=== PATIENT | female | born 1950 | race Caucasian/White ===

== ENCOUNTER 2020-03-06 11:45 | Outpatient (CLI) | payer MEDICARE, SELFPAY ==
--- NOTE | ~2020-03-06 | XR_ITS ---
EXAMINATION: XR foot RT min 3V DATE: 03/06/2020 12:16 INDICATION: Right foot injury TECHNIQUE: Dorsoplantar, two oblique and lateral views of the right foot were obtained. COMPARISON: None. FINDINGS: Essentially nondisplaced oblique intra-articular fracture at the lateral base of the right fifth meta tarsal with up to 1.5 mm separation of the lateral fracture margin but no appreciable fracture gap or incongruity at the articular surface. No other fractures identified. Minimal osteoarthritis at the f irst metatarsophalangeal and a few interphalangeal and tarsal metatarsal joints. Small plantar calcan eal spur. IMPRESSION: 1. Nondisplaced intra-articular fracture at the base of the right fifth metatarsal. Reviewed, dictated and finalized at location B. IMPRESSION: 1. Nondisplaced intra-articular fracture at the base of the right fifth metatar michell.
== END 2020-03-06 11:46 | disposition home or self-care (01) ==
PROVIDERS: PCP Family Medicine; Visit Provider Physician Assistant
DX: S92.354A Nondisplaced fracture of fifth metatarsal bone, right foot, initial encounter for closed fracture (principal); X58.XXXA Exposure to other specified factors, initial encounter
CPT/HCPCS: 73630

== ENCOUNTER 2020-08-24 15:13 | Outpatient (CLI) | payer MEDICARE, SELFPAY ==
--- NOTE | ~2020-08-24 | DEXA_ITS ---
Bone Density Report Name: Love Santiago Age: 69 Sex: Female Ethnicity: White Date of : 1950 Indication: postmenopausal; cancer; Referring Provider: GEGE JOYCE Study: Bone densitometry was performed. Exam Date: August 24, 2020 Accession number: [id number] Bone Density: Region BMD T-score Z-score Classification AP Spine (L1-L4) 1.227 1.6 3.8 Normal Femoral Neck (Left) 0.797 -0.5 1.4 Normal Total Hip (Left) 0.988 0.4 1.9 Normal Total Hip Bilateral Avg 0.973 0.3 1.8 Normal Femoral Neck (Right) 0.860 0.1 1.9 Normal Total Hip (Right) 0.957 0.1 1.7 Normal World Health Organization criteria for BMD impression classify patients as: Normal (T-score at or above -1.0), Osteopenia (T-score between -1.0 and -2.5), or Osteoporosis (T-score at or below -2.5). 10-year Fracture Risk: FRAX not reported because: All T-scores for Spine Total, Hip Total, Femoral Neck at or above -1.0 Clinical Information Provided by Patient: Has used the following medications: Vitamin D, Calcium Has the following medical conditions: Cancer Patient maximum height was 66.5 Menopause Age: 54 Drinks caffeinated beverages Onset of menses at age 11 Number of children 0 Missed period for more than 6 months in a row Impression: The patient has normal bone mass. Discussion: BONE DENSITY IS ABOVE THE MINIMUM DESIRABLE LEVEL AT ALL SKELETAL SITES TESTED. This patient?s bone mineral density is above the minimum desirable level (T-score -1.0 or better) at all sites measured. The patient should follow a healthful lifestyle (good nutrition with adequate calcium and vitamin D, and appropriate weight-bearing exercise). Follow-Up: Consider repeating this study in 5 years or sooner if there is some new clinical indication. Reported by: JOSI on 08/24/2020 3:50:00 PM. Reviewed, dictated and finalized at location ACristian KINNEY
== END 2020-08-24 15:14 | disposition home or self-care (01) ==
LOC: ANHIMG 15:22
PROVIDERS: PCP Family Medicine; Visit Provider Family Medicine
DX: Z78.0 Asymptomatic menopausal state (principal); Z13.820 Encounter for screening for osteoporosis
CPT/HCPCS: 77080

== ENCOUNTER 2021-04-20 10:39 | Outpatient (CLI) | payer MEDICARE, SELFPAY ==
[2021-04-20 12:42] LABS: Lithium 0.9 mmol/L (0.6-1.2)
[2021-04-20 13:17] LABS: Alanine Aminotransferase 21 U/L (4-35); Albumin Level 4.4 g/dL (3.5-5.1); Alkaline Phosphatase 72 U/L (38-126); Anion Gap 6 mmol/L (8-16); Aspartate Amino Transferase 28 U/L (14-36); Bilirubin,Total 0.5 mg/dL (0.2-1.3); Blood Urea Nitrogen 15 mg/dL (7-17); Calcium 9.5 mg/dL (8.4-10.2); Carbon Dioxide 24 mmol/L (22-30); Chloride 105 mmol/L (98-107); Cholesterol 195 mg/dL (0-200); Estimated Glomerular Filt Rate > 60; Glucose 102 mg/dL (65-110); HDL Direct 50 mg/dL; Potassium 4.2 mmol/L (3.4-5.0); Sodium 135 mmol/L (137-145); Triglycerides 144 mg/dL (<150)
[2021-04-20 13:28] LABS: LDL Cholesterol Direct 114 mg/dL
== END 2021-04-20 10:40 | disposition home or self-care (01) ==
PROVIDERS: PCP Family Medicine; Visit Provider Physician Assistant
DX: R53.83 Other fatigue (principal); Z79.899 Other long term (current) drug therapy; E03.9 Hypothyroidism, unspecified; E78.5 Hyperlipidemia, unspecified
CPT/HCPCS: 36415; 80053; 80061; 80178; 84439; 84443

== ENCOUNTER 2021-11-16 15:11 | Outpatient (CLI) | payer MEDICARE, SELFPAY ==
[2021-11-16 17:50] LABS: Free T4 Free Thyroxine 1.09 ng/mL (0.78-2.19)
== END 2021-11-16 15:12 | disposition home or self-care (01) ==
PROVIDERS: PCP Family Medicine; Visit Provider Physician Assistant
DX: E03.9 Hypothyroidism, unspecified (principal)
CPT/HCPCS: 36415; 84439; 84443

== ENCOUNTER 2022-03-21 22:50 | Emergency (ER) | payer MEDICARE, SELFPAY ==
--- NOTE | ~2022-03-21 | XR_ITS ---
EXAMINATION: XR chest 2V DATE: 03/22/2022 04:22 INDICATION: Cough TECHNIQUE: AP and lateral views of the chest are obtained. COMPARISON: 06/14/2004 FINDINGS: The lungs are free of acute opacities. No pleural effusion or pneumothorax. The cardiomedia stinal silhouette is normal. There is moderate thoracic spondylosis. There is a new left breast impla nt, possibly related to mastectomy with implant reconstruction. IMPRESSION: 1. No acute cardiopulmonary abnormality. Reviewed, dictated and finalized at location B. DRIVER SUPERVISOR
[2022-03-22 00:11] VITALS: BP 146/84; PULSE 85; RESP 18; TEMP 36.8; O2SAT 95
[2022-03-22 02:07] LABS: Appearance Urine Clear (Clear); Bilirubin Urine Negative (Negative); Blood Urine Negative (Negative); Color Urine Amber (Yellow); Glucose Urine UA Negative (Negative); Ketones Urine Negative (Negative); Leukocyte Esterase Ur Negative LEU/UL (Negative); Nitrate Urine Positive (Negative); Protein Urine Negative (Negative); Specific Grav Ur <= 1.005 (1.001-1.035); Urobilinogen Urine 0.2 mg/dL (<2.0)
[2022-03-22 02:15] LABS: Mucus Urine Rare /lpf; RBC Urine 0-2 /hpf (0-2); WBC Urine 0-3 /hpf
[2022-03-22 02:18] LABS: Add Urine Microscopic? YES
[2022-03-22 03:11] VITALS: BP 160/90; PULSE 83; RESP 18; O2SAT 98
[2022-03-22 03:32] LABS: Basophils Percent Auto 0.5 % (0.2-1.2); Eosinophils Absolute Auto 0.1 K/mm3 (0-0.3); Eosinophils Percent Auto 1.1 % (0-4.4); Hematocrit 39.2 % (37.0-47.0); Hemoglobin 12.7 g/dL (12.0-15.0); Immature Granulocyte Absolute 0.02 K/mm3 (0.00-0.031); Immature Granulocyte Percent A 0.3 % (0-0.5); Lymphocytes Absolute Auto 0.66 K/mm3 (0.9-3.2); Lymphocytes Percent Auto 8.7 % (18.3-44.2); Mean Corpuscular HGB Conc 32.4 g/dl (32-36); Mean Corpuscular Hemoglobin 31.8 pg (26-34); Mean Corpuscular Volume 98.2 fl (80-100); Mean Platelet Volume 9.6 fl (7.4-10.4); Monocytes Absolute Auto 0.8 K/mm3 (0.1-0.6); Monocytes Percent Auto 10.9 % (2.6-8.5); Neutrophils Percent Auto 78.5 % (45.5-73.1); Platelet Count Result 245 k/mm3 (150-375); Red Blood Count 3.99 M/mm3 (4.2-5.4); Red Cell Distribution Width 12.6 % (11.5-14.5); White Blood Count 7.6 K/mm3 (4.5-10.0)
[2022-03-22 03:41] LABS: Alanine Aminotransferase 51 U/L (6-35); Albumin Level 4.3 g/dL (3.5-5.1); Alkaline Phosphatase 74 U/L (38-126); Anion Gap 10 mmol/L (8-16); Aspartate Amino Transferase 55 U/L (14-36); Bilirubin,Total 0.4 mg/dL (0.2-1.3); Blood Urea Nitrogen 15 mg/dL (7-17); Calcium 9.1 mg/dL (8.4-10.2); Carbon Dioxide 25 mmol/L (22-30); Chloride 103 mmol/L (98-107); Estimated CRCL calculation 46 ml/min; Estimated Glomerular Filt Rate > 60; Glucose 110 mg/dL (65-110); Potassium 3.9 mmol/L (3.4-5.0); Sodium 138 mmol/L (137-145)
--- NOTE | 2022-03-22 04:05 | ED.FEMALEGU ---
HPI - Female Genitourinary General Chief complaint: Urogenital-Female Stated complaint: BLADDER INFECTION Time Seen by Provider: 03/22/22 03:10 History of Present Illness HPI Narrative: 71-year-old female presenting to the emergency department for evaluation of persistent urinary pain, back pain and cough. Patient had a recent hospitalization in [place] and was diagnosed with diabetes insipidus and a urinary tract infection. Patient did complete her antibiotics and has been continuing to take Pyridium but states she is still having some abdominal pain. Patient has also had a cough for approximately the last 5 days and states it is worsened over the last 3 days. Related Data Home Medications Medication Instructions Recorded Confirmed anastrozole 1 mg tablet 1 mg PO DAILY 03/18/19 12/24/21 valbenazine 40 mg capsule 40 mg PO DAILY 12/24/21 12/24/21 (Ingrezza) Allergies Allergy/AdvReac Type Severity Reaction Status Date / Time ampicillin Allergy Unknown unknown Verified 12/24/21 10:26 levofloxacin Allergy Unknown unknown Verified 12/24/21 10:26 Review of Systems Review of Systems: CONSTITUTIONAL: Generalized weakness EYES: Denies visual changes, redness, or discharge. ENT: Denies rhinorrhea, congestion, sore throat, or otalgia. CARDIOVASCULAR: Denies chest pain, palpitations, or edema. RESPIRATORY: See HPI GASTROINTESTINAL: Denies abdominal pain, nausea, vomiting, or diarrhea. GENITOURINARY: See HPI SKIN: Denies rash or itching. MUSCULOSKELETAL: Denies back pain, joint pain, or myalgia. NEUROLOGIC: Denies headache, numbness, or weakness. [facility] Past Medical History Medical History Anxiety Arthritis Bipolar 1 disorder Breast cancer Constipation Hoarseness Hyperlipemia Lichen sclerosus of female genitalia Normal colonoscopy (~01/2012) Post-menopausal Tardive dyskinesia Thyroid disease Surgical History Surgical History History of mastectomy Family History Family History Other Acute myocardial infarction Carcinoma of colon Family history of coronary artery disease Family history of malignant neoplasm of breast in first degree relative Heart disease Hypertension Social History Social History (Updated 12/24/21 @ 10:25 by Brittany Warren [facility]) Smoking status: Never smoker Second hand tobacco smoke exposure: No Alcohol intake: never Alcohol use details: 1/2 or less per week Substance use: never Substance use type: does not use Gender identity (if verbalized by the patient): Female Spiritual care concerns: No Agree to blood products: Yes Exam Narrative: APPEARANCE: Well appearing, no pain, no distress, well-nourished. HEAD: normocephalic, atraumatic. EYES: PERRLA/EOMI, conjunctivae clear. NOSE: Normal no drainage NECK: Supple. No adenopathy, no masses. RESPIRATORY: Airway patent, respirations nonlabored. Clear to auscultation bilaterally, no rales, rhonchi, wheezing. CARDIOVASCULAR: Regular rate and rhythm without murmurs rubs or gallops. ABDOMINAL: Soft, nontender, nondistended, normal bowel sounds MUSCULOSKELETAL: Moves all extremities. Strength/ROM intact, No edema, No calf tenderness. NEURO: Alert. Cranial nerves II through XII intact. Grossly intact SKIN: Warm, dry. Normal Color Course Course Emergency Course: Chest x-ray showed no focal pneumonia. Patient was negative for COVID and flu. Labs are within normal limits. Patient's UA did have some nitrates. Because patient is still having some symptoms of urinary tract infection she was started on Macrobid. Patient and family were updated on the results of the work-up and on the importance of close follow-up. Vital Signs Vital signs: Vital Signs Temperature 98.3 F 03/22/22 00:11 Pulse Rate 85 03/22/22 00:11 Respiratory Rate 18 03/22
[2022-03-22 04:07] LABS: Influenza A QL RT-PCR Negative (Negative); Influenza B QL RT-PCR Negative (Negative); SARS-CoV-2 RNA PCR Negative
[2022-03-22 04:15] VITALS: PULSE 69; RESP 18
[2022-03-22] MEDS: ALBUTEROL SULFATE NEB 2.5 MG/3 ML INH 5 MG INHALATION (04:15)
[2022-03-22] MEDS: HYDROcodone/acetaminophen (*CRX) 5-325 MG TABLET 2 TAB PO (04:29)
[2022-03-22 04:30] VITALS: PULSE 67; RESP 18
[2022-03-22 04:33] VITALS: BP 180/95; PULSE 71; RESP 15; O2SAT 98
== END 2022-03-22 05:24 | disposition home or self-care (01) ==
PROVIDERS: Nurse Practitioner Family; Emergency Provider Emergency Medicine; PCP Family Medicine
DX: R05.9 Cough, unspecified (principal); N23 Unspecified renal colic; Z20.822 Contact with and (suspected) exposure to COVID-19; E78.5 Hyperlipidemia, unspecified; G24.01 Drug induced subacute dyskinesia; E07.9 Disorder of thyroid, unspecified; F41.9 Anxiety disorder, unspecified; F31.9 Bipolar disorder, unspecified; Z85.3 Personal history of malignant neoplasm of breast; Z90.10 Acquired absence of unspecified breast and nipple
CPT/HCPCS: 36415; 71046; 80053; 81001; 85025; 87086; 87636; 94640; 99283; A9270

== ENCOUNTER 2022-03-26 18:08 | Outpatient (CLI) | payer MEDICARE, SELFPAY ==
--- NOTE | ~2022-03-26 | XR_ITS ---
EXAMINATION: XR abdomen obstructive series DATE: 03/26/2022 19:05 INDICATION: Unspecified abdominal pain. TECHNIQUE: Upright and supine views of the abdomen on 4 radiographs were obtained. COMPARISON: None. FINDINGS: There are no dilated loops of bowel. There is a large volume of stool in the colon. No free intraperitoneal gas. IMPRESSION: 1. Nonobstructive bowel gas pattern. 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
[2022-03-26 18:34] LABS: Hematocrit 38.7 % (37.0-47.0); Hemoglobin 12.5 g/dL (12.0-15.0); Mean Corpuscular HGB Conc 32.3 g/dl (32-36); Mean Corpuscular Hemoglobin 31.3 pg (26-34); Platelet Count Result 277 k/mm3 (150-375); Red Blood Count 3.99 M/mm3 (4.2-5.4); Red Cell Distribution Width 12.8 % (11.5-14.5); White Blood Count 14.3 K/mm3 (4.5-10.0)
[2022-03-26 19:00] LABS: Sodium Urine Random 16 meq/L
[2022-03-26 22:03] LABS: Alanine Aminotransferase 31 U/L (6-35); Albumin Level 4.5 g/dL (3.5-5.1); Alkaline Phosphatase 85 U/L (38-126); Anion Gap 9 mmol/L (8-16); Aspartate Amino Transferase 34 U/L (14-36); Bilirubin,Total 0.4 mg/dL (0.2-1.3); Blood Urea Nitrogen 15 mg/dL (7-17); Calcium 9.6 mg/dL (8.4-10.2); Carbon Dioxide 26 mmol/L (22-30); Chloride 99 mmol/L (98-107); Estimated Glomerular Filt Rate > 60; Glucose 115 mg/dL (65-110); Potassium 3.8 mmol/L (3.4-5.0); Sodium 134 mmol/L (137-145)
[2022-03-30 12:55] LABS: Osmolality, Urine 109 mOsm/kg (50-1200)
== END 2022-03-26 18:09 | disposition home or self-care (01) ==
PROVIDERS: PCP Family Medicine; Visit Provider Family Medicine
DX: R10.9 Unspecified abdominal pain (principal); R30.0 Dysuria; E87.1 Hypo-osmolality and hyponatremia; R53.83 Other fatigue; R05.9 Cough, unspecified; R50.9 Fever, unspecified
CPT/HCPCS: 36415; 74019; 80053; 83930; 83935; 84300; 85027; 87040; 87086

== ENCOUNTER 2022-04-02 13:47 | Outpatient (CLI) | payer MEDICARE, SELFPAY ==
--- NOTE | ~2022-04-02 | CT_ITS ---
EXAMINATION: CT diagnostic chest w con DATE: 04/02/2022 14:32 INDICATION: Cough TECHNIQUE: Computed tomography (CT) of the chest was performed without intravenous contrast. The dose -length product was 136.63 mGy-cm. COMPARISON: 2 view chest dated 03/22/2022 FINDINGS: There is a left breast implant. Heart size is normal. No significant pleural or pericardial effusion. No thoracic lymphadenopathy. The upper abdomen is unremarkable. No endobronchial lesions. No focal airspace consolidation. No pneumothorax. There are a few small calcified granulomas in the l ramonita parenchyma. There is a 3 mm nodule at the right lung apex. Mild thoracic spondylosis. IMPRESSION: 1. Lung-RADS category 2: Benign appearance or behavior. Continue annual screening with noncontrast lo w-dose chest CT in 12 months. Reviewed, dictated and finalized at location B. [employer] H[employer] SQUAD IMPRESSION: 1. Lung-RADS category 2: Benign appearance or behavior. Continue annual screeni ng with noncontrast low-dose chest CT in 12 months.
[2022-04-02 14:29] LABS: Anion Gap 6 mmol/L (8-16); Blood Urea Nitrogen 15 mg/dL (7-17); Carbon Dioxide 24 mmol/L (22-30); Chloride 102 mmol/L (98-107); Estimated Glomerular Filt Rate > 60; Glucose 140 mg/dL (65-110); Sodium 132 mmol/L (137-145)
[2022-04-02 14:53] LABS: Lithium 0.8 mmol/L (0.6-1.2)
== END 2022-04-02 13:48 | disposition home or self-care (01) ==
PROVIDERS: PCP Family Medicine; Visit Provider Family Medicine
DX: F31.70 Bipolar disorder, currently in remission, most recent episode unspecified (principal); E23.2 Diabetes insipidus; R05.3 Chronic cough
CPT/HCPCS: 36415; 71260; 80048; 80178; Q9967

== ENCOUNTER 2022-05-30 16:23 | Outpatient (CLI) | payer MEDICARE, SELFPAY ==
[2022-05-30 17:18] LABS: Basophils Absolute Auto 0.1 K/mm3 (0.0-0.1); Basophils Percent Auto 0.5 % (0.2-1.2); Eosinophils Absolute Auto 0.2 K/mm3 (0-0.3); Eosinophils Percent Auto 2.5 % (0-4.4); Hematocrit 38.6 % (37.0-47.0); Hemoglobin 12.7 g/dL (12.0-15.0); Immature Granulocyte Absolute 0.03 K/mm3 (0.00-0.031); Immature Granulocyte Percent A 0.3 % (0-0.5); Lymphocytes Absolute Auto 1.35 K/mm3 (0.9-3.2); Lymphocytes Percent Auto 14.3 % (18.3-44.2); Mean Corpuscular HGB Conc 32.9 g/dl (32-36); Mean Corpuscular Volume 97.2 fl (80-100); Mean Platelet Volume 9.9 fl (7.4-10.4); Monocytes Percent Auto 10.8 % (2.6-8.5); Neutrophils Absolute Auto 6.8 K/mm3 (1.3-6.7); Neutrophils Percent Auto 71.6 % (45.5-73.1); Platelet Count Result 272 k/mm3 (150-375); Red Blood Count 3.97 M/mm3 (4.2-5.4); Red Cell Distribution Width 12.8 % (11.5-14.5); White Blood Count 9.5 K/mm3 (4.5-10.0)
[2022-05-30 17:29] LABS: Alanine Aminotransferase 27 U/L (6-35); Alkaline Phosphatase 101 U/L (38-126); Anion Gap 7 mmol/L (8-16); Aspartate Amino Transferase 28 U/L (14-36); Bilirubin,Total 0.3 mg/dL (0.2-1.3); Blood Urea Nitrogen 14 mg/dL (7-17); Carbon Dioxide 25 mmol/L (22-30); Chloride 104 mmol/L (98-107); Estimated Glomerular Filt Rate > 60; Glucose 87 mg/dL (65-110); Potassium 4.4 mmol/L (3.4-5.0); Sodium 136 mmol/L (137-145)
[2022-05-30 19:58] LABS: Lithium 1.3 mmol/L (0.6-1.2)
== END 2022-05-30 16:24 | disposition home or self-care (01) ==
LOC: ANHLAB 16:27
PROVIDERS: PCP Physician Assistant Medical; Referring Provider Internal Medicine Nephrology; Visit Provider Physician Assistant
DX: R53.83 Other fatigue (principal); E78.2 Mixed hyperlipidemia; Z79.899 Other long term (current) drug therapy; E23.2 Diabetes insipidus; I10 Essential (primary) hypertension
CPT/HCPCS: 36415; 80053; 80069; 80178; 85025

== ENCOUNTER 2022-06-18 16:46 | Outpatient (CLI) | payer MEDICARE, SELFPAY ==
[2022-06-18 17:17] LABS: Anion Gap 3 mmol/L (8-16); Blood Urea Nitrogen 20 mg/dL (7-17); Calcium 8.6 mg/dL (8.4-10.2); Carbon Dioxide 26 mmol/L (22-30); Chloride 104 mmol/L (98-107); Estimated Glomerular Filt Rate > 60; Glucose 104 mg/dL (65-110); Potassium 4.6 mmol/L (3.4-5.0); Sodium 133 mmol/L (137-145)
[2022-06-18 18:24] LABS: Lithium 0.8 mmol/L (0.6-1.2)
[2022-06-19 17:10] LABS: Cholesterol 219 mg/dL (0-200); HDL Direct 39 mg/dL; Triglycerides 338 mg/dL (<150)
[2022-06-19 17:21] LABS: LDL Cholesterol Direct 116 mg/dL
[2022-06-19 17:41] LABS: Thyroid Stimulating Hormone Reflex 0.315 uIU/mL (0.465-4.68)
[2022-06-20 02:58] LABS: Free T4 Free Thyroxine Reflex 1.02 ng/dL (0.78-2.19)
[2022-06-20 11:57] LABS: Total Triiodothyronine (T3) 1.27 NG/ML (0.97-1.69)
== END 2022-06-18 16:47 | disposition home or self-care (01) ==
PROVIDERS: PCP Physician Assistant Medical; Visit Provider Family Medicine
DX: E23.2 Diabetes insipidus (principal); Z79.899 Other long term (current) drug therapy; E78.2 Mixed hyperlipidemia; E03.9 Hypothyroidism, unspecified
CPT/HCPCS: 36415; 80048; 80061; 80178; 84439; 84443; 84480

== ENCOUNTER 2022-10-01 11:32 | Outpatient (CLI) | payer MEDICARE, SELFPAY ==
[2022-10-01 12:11] LABS: Alanine Aminotransferase 25 U/L (6-35); Albumin Level 4.3 g/dL (3.5-5.1); Alkaline Phosphatase 78 U/L (38-126); Anion Gap 6 mmol/L (8-16); Aspartate Amino Transferase 28 U/L (14-36); Bilirubin,Total 0.3 mg/dL (0.2-1.3); Blood Urea Nitrogen 22 mg/dL (7-17); Calcium 9.1 mg/dL (8.4-10.2); Carbon Dioxide 27 mmol/L (22-30); Chloride 109 mmol/L (98-107); Cholesterol 201 mg/dL (0-200); Estimated Glomerular Filt Rate > 60; Glucose 93 mg/dL (65-110); HDL Direct 75 mg/dL; Potassium 4.5 mmol/L (3.4-5.0); Sodium 142 mmol/L (137-145); Triglycerides 121 mg/dL (<150)
[2022-10-01 12:12] LABS: Albumin Level 4.3 g/dL (3.5-5.1); Anion Gap 5 mmol/L (8-16); Blood Urea Nitrogen 22 mg/dL (7-17); Carbon Dioxide 27 mmol/L (22-30); Chloride 109 mmol/L (98-107); Estimated Glomerular Filt Rate > 60; Glucose 92 mg/dL (65-110); Phosphorus 4.6 mg/dL (2.5-4.5); Potassium 4.4 mmol/L (3.4-5.0); Sodium 141 mmol/L (137-145)
[2022-10-01 12:22] LABS: LDL Cholesterol Direct 94 mg/dL
[2022-10-01 12:32] LABS: Lithium 0.5 mmol/L (0.6-1.2)
[2022-10-01 12:52] LABS: Free T4 Free Thyroxine 0.64 ng/mL (0.78-2.19)
== END 2022-10-01 11:33 | disposition home or self-care (01) ==
PROVIDERS: PCP Family Medicine; Referring Provider Physician Assistant; Visit Provider Internal Medicine Nephrology
DX: Z13.1 Encounter for screening for diabetes mellitus (principal); R53.83 Other fatigue; Z13.220 Encounter for screening for lipoid disorders; Z79.899 Other long term (current) drug therapy; E23.2 Diabetes insipidus
CPT/HCPCS: 36415; 80053; 80061; 80069; 80178; 84439; 84443

== ENCOUNTER 2023-01-14 15:46 | Outpatient (CLI) | payer MEDICARE, SELFPAY ==
[2023-01-14 17:22] LABS: Basophils Percent Auto 0.7 % (0.2-1.2); Eosinophils Absolute Auto 0.1 K/mm3 (0-0.3); Hemoglobin 12.9 g/dL (12.0-15.0); Immature Granulocyte Absolute 0.01 K/mm3 (0.00-0.031); Immature Granulocyte Percent A 0.2 % (0-0.5); Lymphocytes Absolute Auto 1.52 K/mm3 (0.9-3.2); Mean Corpuscular HGB Conc 32.3 g/dl (32-36); Mean Corpuscular Volume 96.2 fl (80-100); Mean Platelet Volume 10.3 fl (7.4-10.4); Monocytes Absolute Auto 0.6 K/mm3 (0.1-0.6); Monocytes Percent Auto 9.5 % (2.6-8.5); Neutrophils Absolute Auto 3.8 K/mm3 (1.3-6.7); Neutrophils Percent Auto 62.6 % (45.5-73.1); Platelet Count Result 248 k/mm3 (150-375); Red Blood Count 4.16 M/mm3 (4.2-5.4); Red Cell Distribution Width 12.8 % (11.5-14.5); White Blood Count 6.1 K/mm3 (4.5-10.0)
[2023-01-14 17:33] LABS: Albumin Level 4.6 g/dL (3.5-5.1); Anion Gap 8 mmol/L (8-16); Blood Urea Nitrogen 27 mg/dL (7-17); Calcium 9.1 mg/dL (8.4-10.2); Carbon Dioxide 24 mmol/L (22-30); Chloride 106 mmol/L (98-107); Estimated Glomerular Filt Rate > 60; Glucose 89 mg/dL (65-110); Phosphorus 3.8 mg/dL (2.5-4.5); Potassium 4.5 mmol/L (3.4-5.0); Sodium 138 mmol/L (137-145)
[2023-01-14 17:36] LABS: Alanine Aminotransferase 20 U/L (6-35); Albumin Level 4.6 g/dL (3.5-5.1); Alkaline Phosphatase 76 U/L (38-126); Anion Gap 6 mmol/L (8-16); Aspartate Amino Transferase 31 U/L (14-36); Bilirubin,Total 0.3 mg/dL (0.2-1.3); Blood Urea Nitrogen 27 mg/dL (7-17); Carbon Dioxide 26 mmol/L (22-30); Chloride 106 mmol/L (98-107); Estimated Glomerular Filt Rate > 60; Glucose 89 mg/dL (65-110); Potassium 4.5 mmol/L (3.4-5.0); Sodium 138 mmol/L (137-145)
[2023-01-14 17:49] LABS: Hemoglobin A1C 5.6 % (<5.7)
== END 2023-01-14 15:47 | disposition home or self-care (01) ==
PROVIDERS: PCP Family Medicine; Visit Provider Internal Medicine Nephrology
DX: F31.31 Bipolar disorder, current episode depressed, mild (principal); E23.2 Diabetes insipidus
CPT/HCPCS: 36415; 80053; 80069; 82306; 83036; 84443; 85025

== ENCOUNTER → 2023-01-28 12:13 | Outpatient (CLI) | payer MEDICARE, SELFPAY ==
--- NOTE | ~2023-01-28 | XR_ITS ---
Right Knee Technique: AP, lateral, and sunrise views were obtained. Clinical History: Pain Findings: No fracture or dislocation is seen. Osseous alignment is anatomic. There is minimal degener ative spurring at the patella and medial joint line. Soft tissues are unremarkable. No joint effusion is seen. Impression: Minimal degenerative spurring, as above. Reviewed, dictated and finalized at [facility]. Impression: Minimal degenerative spurring, as above.
--- NOTE | ~2023-01-28 | XR_ITS ---
AP and lateral views of the left hip Clinical history: Pain Findings: No acute fracture or dislocation is seen. Osseous alignment is anatomic. The left hip joint and left SI joint are preserved. Soft tissues are unremarkable. Impression: No significant abnormality is seen. Reviewed, dictated and finalized at [facility]. Impression: No significant abnormality is seen.
== END ==
PROVIDERS: Visit Provider Physician Assistant
DX: M25.552 Pain in left hip (principal); M25.561 Pain in right knee; M25.562 Pain in left knee
CPT/HCPCS: 73502; 73562

== ENCOUNTER 2023-03-27 08:50 | Outpatient (CLI) | payer MEDICARE, SELFPAY ==
--- NOTE | ~2023-03-27 | DEXA_ITS ---
Bone Density Report Name: SULTANA SWANSON Age: 72 Sex: Female Ethnicity: White Date of : 1950 Indication: postmenopausal; screening for osteoporosis; height loss; cancer; Referring Provider: UNKNOWN, UNKNOWN Study: Bone densitometry was performed. Exam Date: March 27, 2023 Accession number: [id number] Bone Density: Region BMD T-score Z-score Classification AP Spine(L1-L4) 1.137 0.8 3.1 Normal Femoral Neck (Left) 0.754 -0.9 1.1 Normal Total Hip (Left) 0.938 0.0 1.7 Normal Femoral Neck (Right) 0.810 -0.4 1.6 Normal Total Hip (Right) 0.938 0.0 1.6 Normal Total Hip Mean 0.938 0.0 1.7 Normal World Health Organization criteria for BMD impression classify patients as: Normal (T-score at or above -1.0), Osteopenia (T-score between -1.0 and -2.5), or Osteoporosis (T-score at or below -2.5). 10-year Fracture Risk: FRAX not reported because: All T-scores for Spine Total, Hip Total, Femoral Neck at or above -1.0 Clinical Information Provided by Patient: Has used the following medications: Vitamin D, Calcium Has the following medical conditions: Cancer Patient maximum height was 66 Menopause Age: 54 Drinks caffeinated beverages Onset of menses at age 12 Number of children 0 Impression: The patient has normal bone mass. Discussion: BONE DENSITY IS ABOVE THE MINIMUM DESIRABLE LEVEL AT ALL SKELETAL SITES TESTED. This patient?s bone mineral density is above the minimum desirable level (T-score -1.0 or better) at all sites measured. The patient should follow a healthful lifestyle (good nutrition with adequate calcium and vitamin D, and appropriate weight-bearing exercise). Follow-Up: Consider repeating this study in 5 years or sooner if there is some new clinical indication. Reported by: [facility] on 03/27/2023 9:32:00 AM. Reviewed, dictated and finalized at location ACristian KINNEY
== END 2023-03-27 08:51 | disposition home or self-care (01) ==
PROVIDERS: PCP Family Medicine
DX: Z51.81 Encounter for therapeutic drug level monitoring (principal); Z79.811 Long term (current) use of aromatase inhibitors; Z78.0 Asymptomatic menopausal state
CPT/HCPCS: 77080

== ENCOUNTER 2023-04-01 01:29 | Day surgery (SDC) | payer MEDICARE, SELFPAY ==
[2023-03-20 12:06] VITALS: BMI 24.0
--- NOTE | 2023-03-28 14:28 | SUR.PREOP ---
Patient called regarding upcoming procedure. No answer on all three phone numbers- left a message on only the home phone for arrival time and phone number to call for questions.
[2023-04-01 12:11] VITALS: BP 146/82; PULSE 98; RESP 18; TEMP 36.9; O2SAT 97
[2023-04-01] MEDS: LACTATED RINGERS 1,000 ML 150 ML IV CONT (12:20)
--- NOTE | 2023-04-01 12:44 | PM.HPGS ---
History of Present Illness History of Present Illness Consent: Risks, benefits, and alternatives have been discussed and questions answered. Patient agrees to proceed with procedure. Chief complaint: neoplasm screening Narrative: Love Santiago is a 72 year old female Presents for screening colonoscopy. Patient's current weight appetite and bowel movements are normal. Patient denies abdominal pain. She has had no bleeding. Family history noncontributory. Previous colonoscopy 2011 was unremarkable. Review of Systems Review of Systems: Review of systems noncontributory. [facility] Past Medical History Medical History (Updated 04/01/23 @ 12:45 by Romaine Hurst MD) Anxiety Arthritis Bipolar 1 disorder Breast cancer Fracture of fifth metatarsal bone of right foot Hyperlipemia Lichen sclerosus of female genitalia Normal colonoscopy (~01/2012) Post-menopausal Thyroid disease Surgical History Surgical History History of mastectomy Family History Family History Other Acute myocardial infarction Carcinoma of colon Family history of coronary artery disease Family history of malignant neoplasm of breast in first degree relative Heart disease Hypertension Social History Social History Smoking status: Never smoker Second hand tobacco smoke exposure: No Alcohol intake: never Alcohol use details: 1/2 or less per week Substance use: never Substance use type: does not use Lack of Transportation: No Lack of Food: Never True Current Housing: I Have Housing Concerned About Future Housing: No Difficulty Paying Gas/Electric Bills: No Difficulty Paying for Meds: No Currently Unemployed: No Education: Master's Degree or Higher Difficulty w/ Childcare or Family Care: No Living arrangements: alone Gender identity (if verbalized by the patient): Female Sexual Orientation (if Verbalized by the Patient): Straight or Heterosexual Spiritual care concerns: No Agree to blood products: Yes Meds Home Medications and Allergies Home Medications Medication Instructions Recorded Confirmed Type anastrozole 1 mg tablet 1 mg PO DAILY 03/18/19 03/20/23 History ascorbate calcium (vitamin C) 500 500 mg PO DAILY 07/09/22 03/20/23 History mg tablet calcium carbonate 600 mg-vitamin 3 cap PO DAILY 07/09/22 03/20/23 History D3 12.5 mcg (500 unit) capsule (Calcium 600 with Vitamin D3) cholecalciferol (vitamin D3) 25 25 mcg PO DAILY 07/09/22 03/20/23 History mcg (1,000 unit) capsule vitamin B complex 1 tablet PO DAILY 07/09/22 03/20/23 History simvastatin 20 mg tablet See Rx Instructions .Route 08/30/22 03/20/23 Rx .COMPLEX #90 tabs levothyroxine 75 mcg tablet See Rx Instructions .Route 12/07/22 03/20/23 Rx .COMPLEX #90 tabs quetiapine 100 mg tablet 100 mg PO DAILY 03/03/23 03/20/23 History amiloride 5 mg tablet 5 mg PO DAILY 03/20/23 03/20/23 History Allergies Allergy/AdvReac Type Severity Reaction Status Date / Time ampicillin Allergy Unknown unknown Verified 04/01/23 12:10 levofloxacin Allergy Unknown unknown Verified 04/01/23 12:10 Vital Signs Vital Signs - 24 hr 04/01/23 12:11 Temperature 98.4 F Pulse Rate 98 Respiratory Rate 18 Blood Pressure 146/82 H Pulse Oximetry 97 Oxygen Delivery Room Air Exam Narrative: Physical exam reveals patient to be alert. Vital signs stable. HEENT exam is unremarkable. Patient is anicteric. Lungs are clear to auscultation and percussion. Heart is without murmur or extra sounds. Abdomen bowel sounds are present soft nontender with no organomegaly. Digital external rectal exam normal. Assessment and Plan Assessment and plan (1) Encounter for screening colonoscopy: Code(s): Z12.11 - Encounter for screening for malignant ne
--- NOTE | 2023-04-01 13:01 | WPDANESEPPF ---
Anes - Initial Pre Proc Eval Procedure: Operation Date: 04/01/23 13:30 Proposed Procedures p Screening Colonoscopy - Romaine Hurst MD Date/Time: 04/01/23 13:01 Surgeon: Romaine Hurst MD Pre Op Diagnosis: neoplasm screening Patient Data Age: 72 Gender: F Height: 1.68 m Weight: 64.3 kg Last Vital Signs Temp 98.4 F 04/01/23 12:11 Pulse 98 04/01/23 12:11 Resp 18 04/01/23 12:11 BP 146/82 H 04/01/23 12:11 Pulse Ox 97 04/01/23 12:11 O2 Del Method Room Air 04/01/23 12:11 Allergies Allergy/AdvReac Type Severity Reaction Status Date / Time ampicillin Allergy Unknown unknown Verified 04/01/23 12:10 levofloxacin Allergy Unknown unknown Verified 04/01/23 12:10 Home Medications Medication Instructions Recorded Confirmed Type anastrozole 1 mg tablet 1 mg PO DAILY 03/18/19 03/20/23 History ascorbate calcium (vitamin C) 500 500 mg PO DAILY 07/09/22 03/20/23 History mg tablet calcium carbonate 600 mg-vitamin 3 cap PO DAILY 07/09/22 03/20/23 History D3 12.5 mcg (500 unit) capsule (Calcium 600 with Vitamin D3) cholecalciferol (vitamin D3) 25 25 mcg PO DAILY 07/09/22 03/20/23 History mcg (1,000 unit) capsule vitamin B complex 1 tablet PO DAILY 07/09/22 03/20/23 History simvastatin 20 mg tablet See Rx Instructions .Route 08/30/22 03/20/23 Rx .COMPLEX #90 tabs levothyroxine 75 mcg tablet See Rx Instructions .Route 12/07/22 03/20/23 Rx .COMPLEX #90 tabs quetiapine 100 mg tablet 100 mg PO DAILY 03/03/23 03/20/23 History amiloride 5 mg tablet 5 mg PO DAILY 03/20/23 03/20/23 History Patient hx anesthesia problems: none Family hx anesthesia problems: none Results Review: All pre-operative results and documents have been reviewed as part of the pre-operative evaluation. [facility] Past Medical History Medical History (Updated 04/01/23 @ 12:45 by Romaine Hurst MD) Anxiety Arthritis Bipolar 1 disorder Breast cancer Fracture of fifth metatarsal bone of right foot Hyperlipemia Lichen sclerosus of female genitalia Normal colonoscopy (~01/2012) Post-menopausal Thyroid disease Surgical History Surgical History History of mastectomy Family History Family History Other Acute myocardial infarction Carcinoma of colon Family history of coronary artery disease Family history of malignant neoplasm of breast in first degree relative Heart disease Hypertension Social History Social History Smoking status: Never smoker Second hand tobacco smoke exposure: No Alcohol intake: never Alcohol use details: 1/2 or less per week Substance use: never Substance use type: does not use Lack of Transportation: No Lack of Food: Never True Current Housing: I Have Housing Concerned About Future Housing: No Difficulty Paying Gas/Electric Bills: No Difficulty Paying for Meds: No Currently Unemployed: No Education: Master's Degree or Higher Difficulty w/ Childcare or Family Care: No Living arrangements: alone Gender identity (if verbalized by the patient): Female Sexual Orientation (if Verbalized by the Patient): Straight or Heterosexual Spiritual care concerns: No Agree to blood products: Yes Anes - Eval Final PreProcedure Day of Procedure 04/01/23 13:01 Patient weight: normal Heart: regular rate and rhythm Lungs: clear to auscultation Airway: Mallampati scale class II Neurological: alert and oriented Last oral intake: >/= 8 hours ASA classification: III Emergent: no Anesthetic plan: proceed Anesthesia type and monitoring: general GIVS and standard monitoring Results Review: All pre-operative results and documents have been reviewed as part of the pre-operative evaluation. Informed Consent: The patient's anesthetic plan and its attendant risks and benefits were
[2023-04-01 13:25] VITALS: BP 85/44; PULSE 66; RESP 23; O2SAT 95
[2023-04-01 13:35] VITALS: BP 108/58; PULSE 63; RESP 15; O2SAT 95
[2023-04-01 13:45] VITALS: BP 133/62; PULSE 73; RESP 18; O2SAT 99
== END 2023-04-01 13:53 | disposition home or self-care (01) ==
PROVIDERS: PCP Family Medicine; Visit Provider Internal Medicine Gastroenterology
PROC: 0DJD8ZZ Inspection of Lower Intestinal Tract, Via Natural or Artificial Opening Endoscopic (ICD-10-PCS; CPT 45378; principal; 2023-04-01 13:30)
DX: Z12.11 Encounter for screening for malignant neoplasm of colon (principal); K64.8 Other hemorrhoids; F31.9 Bipolar disorder, unspecified; Z85.3 Personal history of malignant neoplasm of breast; E78.5 Hyperlipidemia, unspecified
CPT/HCPCS: G0121; J2001; J2371; J2704; J7120

== ENCOUNTER 2023-05-13 14:15 | Outpatient (CLI) | payer MEDICARE, SELFPAY ==
[2023-05-13 14:59] LABS: Albumin Level 4.3 g/dL (3.5-5.1); Anion Gap 8 mmol/L (8-16); Blood Urea Nitrogen 25 mg/dL (7-17); Calcium 8.9 mg/dL (8.4-10.2); Carbon Dioxide 21 mmol/L (22-30); Chloride 110 mmol/L (98-107); Estimated Glomerular Filt Rate > 60; Glucose 88 mg/dL (65-110); Phosphorus 4.5 mg/dL (2.5-4.5); Potassium 4.3 mmol/L (3.4-5.0); Sodium 139 mmol/L (137-145)
== END 2023-05-13 14:16 | disposition home or self-care (01) ==
LOC: ANHLAB 14:16
PROVIDERS: PCP Family Medicine; Visit Provider Internal Medicine Nephrology
DX: E23.2 Diabetes insipidus (principal)
CPT/HCPCS: 36415; 80069

== ENCOUNTER 2023-08-27 11:47 | Outpatient (CLI) | payer MEDICARE, SELFPAY ==
[2023-08-27 12:41] LABS: Alanine Aminotransferase 17 U/L (6-35); Albumin Level 4.5 g/dL (3.5-5.1); Alkaline Phosphatase 81 U/L (38-126); Anion Gap 7 mmol/L (4-12); Aspartate Amino Transferase 28 U/L (14-36); Bilirubin,Total 0.6 mg/dL (0.2-1.3); Blood Urea Nitrogen 24 mg/dL (7-17); Calcium 9.4 mg/dL (8.4-10.2); Carbon Dioxide 22 mmol/L (22-30); Chloride 107 mmol/L (98-107); Cholesterol 177 mg/dL (0-200); Estimated Glomerular Filt Rate > 60; Glucose 101 mg/dL (65-110); HDL Direct 65 mg/dL; Potassium 4.5 mmol/L (3.4-5.0); Sodium 136 mmol/L (137-145); Triglycerides 121 mg/dL (<150)
[2023-08-27 12:51] LABS: LDL Cholesterol Direct 94 mg/dL
== END 2023-08-27 11:48 | disposition home or self-care (01) ==
LOC: ANHLAB 11:50
PROVIDERS: PCP Family Medicine; Visit Provider Physician Assistant
DX: Z13.1 Encounter for screening for diabetes mellitus (principal); E03.9 Hypothyroidism, unspecified; E23.2 Diabetes insipidus; E78.2 Mixed hyperlipidemia; R53.83 Other fatigue; Z13.220 Encounter for screening for lipoid disorders
CPT/HCPCS: 36415; 80053; 80061; 84439; 84443

== ENCOUNTER 2023-11-12 13:25 | Outpatient (CLI) | payer MEDICARE, SELFPAY ==
[2023-11-12 13:50] LABS: Albumin Level 4.4 g/dL (3.5-5.1); Anion Gap 6 mmol/L (4-12); Blood Urea Nitrogen 25 mg/dL (7-17); Calcium 8.7 mg/dL (8.4-10.2); Carbon Dioxide 26 mmol/L (22-30); Chloride 107 mmol/L (98-107); Estimated Glomerular Filt Rate > 60; Glucose 91 mg/dL (65-110); Phosphorus 4.2 mg/dL (2.5-4.5); Potassium 4.6 mmol/L (3.4-5.0); Sodium 139 mmol/L (137-145)
== END 2023-11-12 13:26 | disposition home or self-care (01) ==
PROVIDERS: PCP Family Medicine; Visit Provider Internal Medicine Nephrology
DX: E23.2 Diabetes insipidus (principal)
CPT/HCPCS: 36415; 80069

== ENCOUNTER 2024-05-03 10:11 | Outpatient (CLI) | payer MEDICARE, SELFPAY ==
[2024-05-03 10:47] LABS: Basophils Percent Auto 0.7 % (0.2-1.2); Eosinophils Absolute Auto 0.1 K/mm3 (0-0.3); Hematocrit 39.8 % (37.0-47.0); Hemoglobin 13.1 g/dL (12.0-15.0); Immature Granulocyte Absolute 0.01 K/mm3 (0.00-0.031); Immature Granulocyte Percent A 0.2 % (0-0.5); Lymphocytes Absolute Auto 1.37 K/mm3 (0.9-3.2); Lymphocytes Percent Auto 24.3 % (18.3-44.2); Mean Corpuscular HGB Conc 32.9 g/dl (32-36); Mean Corpuscular Hemoglobin 31.6 pg (26-34); Mean Corpuscular Volume 96.1 fl (80-100); Mean Platelet Volume 10.3 fl (7.4-10.4); Monocytes Absolute Auto 0.5 K/mm3 (0.1-0.6); Monocytes Percent Auto 9.6 % (2.6-8.5); Neutrophils Absolute Auto 3.6 K/mm3 (1.3-6.7); Neutrophils Percent Auto 63.2 % (45.5-73.1); Platelet Count Result 229 k/mm3 (150-375); Red Blood Count 4.14 M/mm3 (4.2-5.4); Red Cell Distribution Width 12.8 % (11.5-14.5); White Blood Count 5.6 K/mm3 (4.5-10.0)
[2024-05-03 11:02] LABS: Alanine Aminotransferase 15 U/L (6-35); Albumin Level 4.3 g/dL (3.5-5.1); Alkaline Phosphatase 84 U/L (38-126); Anion Gap 3 mmol/L (4-12); Aspartate Amino Transferase 30 U/L (14-36); Bilirubin,Total 0.6 mg/dL (0.2-1.3); Blood Urea Nitrogen 25 mg/dL (7-17); Calcium 9.5 mg/dL (8.4-10.2); Carbon Dioxide 24 mmol/L (22-30); Chloride 112 mmol/L (98-107); Cholesterol 170 mg/dL (0-200); Estimated Glomerular Filt Rate > 60; Glucose 92 mg/dL (65-110); HDL Direct 58 mg/dL; Potassium 4.5 mmol/L (3.4-5.0); Sodium 139 mmol/L (137-145); Triglycerides 108 mg/dL (<150)
[2024-05-03 11:08] LABS: Phosphorus 4.2 mg/dL (2.5-4.5)
[2024-05-03 11:14] LABS: LDL Cholesterol Direct 70 mg/dL
[2024-05-03 11:25] LABS: Vitamin D 25 Hydroxy 57.5 ng/mL
== END 2024-05-03 10:12 | disposition home or self-care (01) ==
PROVIDERS: PCP Family Medicine; Visit Provider Internal Medicine Nephrology
DX: E87.1 Hypo-osmolality and hyponatremia (principal); E78.2 Mixed hyperlipidemia; E03.9 Hypothyroidism, unspecified; E55.9 Vitamin D deficiency, unspecified; R53.83 Other fatigue
CPT/HCPCS: 36415; 80053; 80061; 82306; 84100; 84443; 85025

== ENCOUNTER 2024-11-10 10:58 | Outpatient (CLI) | payer MEDICARE, SELFPAY ==
--- OUTSIDE RECORDS SUMMARY | 2024-11-10 11:09 | XMS_ITS | Clinical Summary ---
Author Organization [facility] Address [address] [place] [address] Phone Care Team Providers Care It Security Analyst Name Role Phone Magdalena Ruiz MD Primary Care Provider [phone] Allergies Active Allergy Reactions Criticality Noted Date Comments Amoxicillin Hives Medium 10/06/2020 Ampicillin Hives Medium 03/16/2022 Levofloxacin Other (see comments) Low 08/28/2017 Other reaction(s): Abdominal pain Medications albuterol HFA (PROVENTIL HFA) 108 (90 Base) MCG/ACT inhaler INHALE 1 PUFF BY MOUTH EVERY 8 HOURS NEEDED FOR SHORTNESS OF BREATH OR WHEEZING 2 Active aMILoride (MIDAMOR) 5 MG tablet TAKE 1 TABLET BY MOUTH EVERY DAY IN THE MORNING 2 Active anastrozole (ARIMIDEX) 1 MG chemo tablet Take 1 mg by mouth 1 (one) time each day 2 Active benzonatate (TESSALON) 100 MG capsule TAKE 1 CAPSULE BY MOUTH THREE TIMES A DAY 2 Active famotidine (PEPCID) 40 MG tablet 2 Active levothyroxine (SYNTHROID) 75 MCG tablet Take 75 mcg by mouth 1 (one) time each day 2 Active Linzess 72 MCG capsule Take 1 tablet by mouth 1 (one) time each day 2 Active lithium 300 MG capsule Take 300 mg by mouth in the morning and 300 mg at noon and 300 mg in the evening. 2 Active Meth-Hyo-M Bl-Na Phos-Ph Michael (Uribel) 118 MG capsule TAKE 1 CAPSULE BY MOUTH FOUR TIMES A DAY NEEDED 2 Active phenazopyridin e (PYRIDIUM) 100 MG tablet 100 MG ORALLY THREE TIMES A DAY FOR 10 DAYS 2 Active simvastatin (ZOCOR) 20 MG tablet 2 Active solifenacin (VESICARE) 10 MG tablet Take 10 mg by mouth 1 (one) time each day 2 Active Spacer/Aero-Ho lding Chambers (OptiChamber Melissa-Lg Mask) device Inhale See administration instructions 2 Active traZODone (DESYREL) 50 MG tablet TAKE 0.5-1 TABLET (25-50 MG) BY MOUTH AT BEDTIME NEEDED FOR INSOMNIA. STOP AMBIEN 2 Active zolpidem (AMBIEN) 10 MG tablet 2 Active Active Problems Problem Noted Date Diagnosed Date Acute cystitis 03/18/2022 Overview (04/18/2022): Last Assessment & Plan: Completed 3 days CTX for presumed UTI No urine cx sent Pyridium for pain Primary hypertension 03/18/2022 Overview (04/18/2022): Last Assessment & Plan: BP elevated, No hx of HTN Started Amlodipine 2.5mg daily Outpt follow up Altered mental status 03/16/2022 Overview (04/18/2022): Last Assessment & Plan: - Unclear etiology - Presented altered with concern for memory loss, difficulties in speech and writing. Currently A&Ox4. Difficulties with speech anf writing have been present for some time. - pt reports UTI symptoms, but no fever, negative UA, no leukocytosis - completed a 3 day course of Ceftriaxone for possible UTI. No urine cx sent - CT Head negative - CT A/P negative for acute infection or bowel obstruction. + R adnexal cyst - outpt nonurgent pelvic US recommended - lithium level, TSH/fT4, B12, folate, RPR, UDS- normal -Hold Zolpidem as likely deliriogenic component. Ok for PRN Seroquel - Neuro consulted - feel presentation was multifactorial. rec outpt follow up with primary neurologist in [facility] with workup to include treatable causes of dementia, an EEG, a baseline full neuropsychological evaluation, etcetera. Bipolar disorder 03/16/2022 Overview (04/18/2022): Last Assessment & Plan: - on lithium - lithium level normal Confusion 03/16/2022 Hyperlipidemia 03/16/2022 Overview (04/18/2022): Last Assessment & Plan: - continue statin Hypothyroidism 03/16/2022 Overview (04/18/2022): Last Assessment & Plan: - normal TSH/fT4 - continue Synthroid Bilateral impacted cerumen 02/15/2022 Overview (04/18/2022): Last Assessment & Plan: Avoid ear cleaning techniques Last Assessment & Plan: Avoid ear cleaning techniques Sensorineural hearing loss, bilateral 02/15/2022 Overview (04/18/2022): Last Assessment & Plan: Avoid ear cleaning techniques Call if wish is to proceed with hearing test Going on 5 week trip to [place] Last Assessment & Plan: Avoid ear cleaning techniques Call if wish is to proceed with hearing test Going on 5 week trip to [place] Dyskinesia 11/09/2021 Overview (04/18/2022): Last Assessment & Plan: Ms. Love Santiago is a 70 y.o. female, who presents for follow-up for dyskinesias (choreiform movements) and essential tremor. She is about the same since the last visit. Ingrezza did not seem to have changed the severity of the dyskinesias significantly and may have contributed to worsening of underlying hoarseness. She has been off the medication. She is only aware of the movements at night, but they do not limit her sleep. The tremor is about the same in the hands and does not limit her much. She did not try a visit with OT. We reviewed her symptoms. The etiology of the dyskinesias is unclear, but tardive dyskinesia should be in the differential albeit minimal exposure. I agree with her that we would expect more progression of symptoms if this was HD. She was still not sure about the test and we talked about thinking about it more. As far as treatment, she is not bothered by the movements and it is appropriate to remain off the medication. She is considering a move to [place] and is also concerned about cost and medication availability. Finally, the tremor remains mild and not bothersome. She could consider a visit with OT to check for different devices that could help her to write/type better and she was going to consider it. Plan: - Continue off Ingrezza. - Continue to monitor the movements. If they become bothersome, contact the clinic. - Contact the clinic if you would like the be checked for HD. - Monitor the tremor. Potential medication side effects were discussed during the encounter. Last Assessment & Plan: Ms. Love Santiago is a 70 y.o. female, who presents for follow-up for dyskinesias (choreiform movements) and essential tremor. She is about the same since the last visit. Ingrezza did not seem to have changed the severity of the dyskinesias significantly and may have contributed to worsening of underlying hoarseness. She has been off the medication. She is only aware of the movements at night, but they do not limit her sleep. The tremor is about the same in the hands and does not limit her much. She did not try a visit with OT. We reviewed her symptoms. The etiology of the dyskinesias is unclear, but tardive dyskinesia should be in the differential albeit minimal exposure. I agree with her that we would expect more progression of symptoms if this was HD. She was still not sure about the test and we talked about thinking about it more. As far as treatment, she is not bothered by the movements and it is appropriate to remain off the medication. She is considering a move to [place] and is also concerned about cost and medication availability. Finally, the tremor remains mild and not bothersome. She could consider a visit with OT to check for different devices that could help her to write/type better and she was going to consider it. Plan: - Continue off Ingrezza. - Continue to monitor the movements. If they become bothersome, contact the clinic. - Contact the clinic if you would like the be checked for HD. - Monitor the tremor. Potential medication side effects were discussed during the encounter. 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 Love Santiago is a 70 y.o. 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 1. Tremor. She is about the same since the last visit. The tremor is the most bothersome symptom to her. She was hesitant about trying primidone in the past due to potential side effects. She is bothered by the tremor. We talked about non-pharmacologic strategies to minimize the tremor and she considered an evaluation with OT. Propranolol is probably not an option for her due to low HR. Another option that should not interact with her medications would be gabapentin, but she was hesitant about trying it due to the potential for sedation. - Referral to occupational therapy. 2. Chorea. She is unaware of the movements. She is on Ingrezza 40, which she is unsure whether it made any difference. She completed a thorough evaluation with blood work and brain imaging and no cause for the chorea was found. We had a discussion about testing for HD. She does not have family history of similar symptoms. We talked about pros and cons of the genetic testing and she opted to think about it. She agreed to have a conversation with Ligia Christy about testing. She has a remote exposure to haloperidol. As far as symptoms control, we discussed that if the chorea is not bothersome, she does not need to be on any medications for it at all. She will consider discontinuing the medication. - Consider stopping Ingrezza. Potential medication side effects were discussed during the encounter. Last Assessment & Plan: Ms. Love Santiago is a 70 y.o. 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 1. Tremor. She is about the same since the last visit. The tremor is the most bothersome symptom to her. She was hesitant about trying primidone in the past due to potential side effects. She is bothered by the tremor. We talked about non-pharmacologic strategies to minimize the tremor and she considered an evaluation with OT. Propranolol is probably not an option for her due to low HR. Another option that should not interact with her medications would be gabapentin, but she was hesitant about trying it due to the potential for sedation. - Referral to occupational therapy. 2. Chorea. She is unaware of the movements. She is on Ingrezza 40, which she is unsure whether it made any difference. She completed a thorough evaluation with blood work and brain imaging and no cause for the chorea was found. We had a discussion about testing for HD. She does not have family history of similar symptoms. We talked about pros and cons of the genetic testing and she opted to think about it. She agreed to have a conversation with Ligia Christy about testing. She has a remote exposure to haloperidol. As far as symptoms control, we discussed that if the chorea is not bothersome, she does not need to be on any medications for it at all. She will consider discontinuing the medication. - Consider stopping Ingrezza. Potential medication side effects were discussed during the encounter. 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 07/29/2017 Immunizations Immunization Administration Dates Next Due Influenza, Injectable, Quadrivalent 01/20/2020 Influenza, Injectable, Quadrivalent, Preservativ e Free 02/26/2019 Pneumococcal Conjugate 13-Valent 04/10/2018 Family History Medical History Relation Comments Heart disease Father Heart failure Father Breast cancer Mother Relation Status Comments Father Mother Social History Tobacco Use Types Packs/Day Years Used Date Smoking Tobacco: Never Smokeless Tobacco: Never Tobacco Cessation:Counseling Given: Not Answered Alcohol Use Standard Drinks/Week Comments Not Currently 0 (1 standard drink = 0.6 oz pur e alcohol) Comments Unknown Sex and Gender Information Value Date Recorded Sex Assigned at Not on file Legal Sex Female 9:05 AM MST Gender Identity Not on file Sexual Orientation Not on file Last Filed Vital Signs Vital Sign Reading Time Taken Comments Blood Pressure 142/86 04/22/2022 1:46 PM NURSE REVIEWER Pulse - - Temperature 36.6 C (97.9 F) 04/22/2022 1:46 PM NURSE REVIEWER Respiratory Rate 18 04/22/2022 1:46 PM NURSE REVIEWER Oxygen Saturation - - Inhaled Oxygen Concentration - - Weight 62.1 kg (137 lb) 04/22/2022 1:46 PM NURSE REVIEWER Height 167.6 cm (5' 6) 04/22/2022 1:46 PM NURSE REVIEWER Body Mass Index 22.11 04/22/2022 1:46 PM NURSE REVIEWER Plan of Treatment Health Maintenance Due Date Last Done Comments Pneumococcal PPSV23/PCV13 65 + Years / Low and Medium Risk (2 of 3 - PCV20 or PCV21) 04/10/2019 04/10/2018 Influenza Vaccine (Season Ended) 2025 02/27/20 19 Insurance [employer] MEDICARE Care Teams It Security Analyst Relationship Specialty Start Date End Date Magdalena Ruiz MD [address] [place] [address] PCP - General Internal Medicine 04/12/22
--- OUTSIDE RECORDS SUMMARY | 2024-11-10 11:09 | XMS_ITS | Patient Health Record ---
Author Organization [facility] Address [address] [place] [address] Care Team Providers Care Scientific Laboratory Supervisor Name Role Phone Magdalena Ruiz MD Primary Care Provider Sharonda Dave Unavailable [phone] Allergies Allergen (clinical drug ingredient) Drug/Non Drug Allergy documented on EMR Reaction Allergy Type Onset Date Status ampicillin Ampicillin Unknown Drug Allergy 07/22/2023 Acti ve levofloxacin levoFLOXacin Unknown Drug Allergy 07/22/2023 Active levothyroxine Levothyroxine Unknown Drug Allergy Active Reason For Referral No Information Medications Medication SIG (Take, Route, Frequency, Duration) Notes Start Date End Date Status aMILoride HCl 5 mg Oral 09/26/2023 Unknown Phenazopyridine HCl 100 MG Oral 09/26/2023 Unknown Benzonatate 100 MG Oral 09/26/2023 Unknown Fluticasone Propionate Diskus 50 MCG/ACT Inhalation *Reorder from Reissued for eRx and Interaction Alerts* 09/26/2023 Unknown Levothyroxine Sodium 75 MCG Oral 09/26/2023 Unknown Clawson 3 *Pick strength-form from Reissued for eRX* 09/26/2023 Unknown Ingrezza 40 mg Oral 09/26/2023 Unkn own SOLIFENACIN 10 MG TABLET *Reorder from [employer] for eRx and Interaction Alerts* 09/26/2023 Unknown QUEtiapine Fumarate 200 MG 1 tablet Oral Once a day at bedtime; Duration: 90 days Active Omeprazole 20 MG Oral 09/26/2023 Un known QUEtiapine Fumarate 25 MG Oral 09/26/2023 Not-Taking Simvastatin 20 MG Oral 09/26/2023 U nknown QUEtiapine Fumarate 100 MG TAKE 2 TABLETS BY MOUTH EVERY DAY AT BEDTIME; Duration: 90 Active Social History Sex Assigned At : Social History Observation Description Sex Assigned At Female Problems Problem Type SNOMED Code ICD Code Onset Dates Problem Status W/U Status Risk Notes Problem Bipolar disorder, current episode depressed, mild (F31.31) Active confirmed Encounters Encounter Location Date Provider Diagnosis [facility] [address] [place] [address] 12/30/2023 Sharonda Narvaez Bipolar disorder, current episode depressed, mild F31.31 [facility] [address] [place] [address] 04/22/2024 Sharonda Narvaez Bipolar disorder, current episode depressed, mild F31.31 Assessments Encounter Date Diagnosis (ICD Code) Assessment Notes Treatment Notes Treatment Clinical Notes Section Notes 12/30/2023 Bipolar disorder, current episode depressed, mild (ICD-10 - F31.31) Stable, continue current medications. Patient educated on all medications including potential benefits, side effects, risks. Educated on proper dosing schedule and importance of compliance. 04/22/2024 Bipolar disorder, current episode depressed, mild (ICD-10 - F31.31) Stable, continue current medications. Patient educated on all medications including potential benefits, side effects, risks. Educated on proper dosing schedule and importance of compliance. Stable, continue current medications. Patient educated on all medications including potential benefits, side effects, risks. Educated on proper dosing schedule and importance of compliance. Plan Of Treatment No Information Insurance Providers Payer Name Payer Address Payer Phone Subscriber Number Group Number Insured Name Patient Relationship to Insured Coverage Start Date Coverage End Date [employer] Medicare Replacemen t/Advantag e - Ppo [address] [place] [address] [id number] SULTANA SWANSON Self - patient is the insured Medical (General) History Medical History History ICD Code Problems: Bipolar affective disorder, cu rrent episode depression Hyponatremia High cholesterol CKD Surgical History Surgery Date(Month/Year) Reconstructive surgery 09/16/2017 Breast surgery (05161) 09/16/2017
[2024-11-10 11:37] LABS: Alanine Aminotransferase 22 U/L (6-35); Albumin Level 4.4 g/dL (3.5-5.1); Alkaline Phosphatase 69 U/L (38-126); Aspartate Amino Transferase 34 U/L (14-36); Bilirubin,Total 0.5 mg/dL (0.2-1.3); Cholesterol 191 mg/dL (0-200); HDL Direct 62 mg/dL; Total Protein 7.6 g/dL (6.3-8.2); Triglycerides 130 mg/dL (<150)
[2024-11-10 11:38] LABS: Albumin Level 4.3 g/dL (3.5-5.1); Anion Gap 9 mmol/L (4-12); Blood Urea Nitrogen 22 mg/dL (7-17); Calcium 9.5 mg/dL (8.4-10.2); Carbon Dioxide 23 mmol/L (22-30); Chloride 108 mmol/L (98-107); Estimated Glomerular Filt Rate > 60; Glucose 92 mg/dL (65-110); Potassium 4.5 mmol/L (3.4-5.0); Sodium 140 mmol/L (137-145)
[2024-11-10 12:11] LABS: Thyroid Stimulating Hormone Reflex 1.710 uIU/mL (0.465-4.68)
== END 2024-11-10 10:59 | disposition home or self-care (01) ==
PROVIDERS: Internal Medicine Nephrology; PCP Family Medicine; Visit Provider Internal Medicine Nephrology
DX: E23.2 Diabetes insipidus (principal); E55.9 Vitamin D deficiency, unspecified; Z51.81 Encounter for therapeutic drug level monitoring; E78.2 Mixed hyperlipidemia; E03.9 Hypothyroidism, unspecified
CPT/HCPCS: 36415; 80061; 80069; 80076; 82306; 84443

== ENCOUNTER 2025-03-02 17:36 | Outpatient (CLI) | payer MEDICARE, SELFPAY ==
[2025-03-02 18:01] LABS: Hematocrit 38.3 % (37.0-47.0); Hemoglobin 12.3 g/dL (12.0-15.0); Immature Granulocyte Percent A 0.3 % (0-0.5); Lymphocytes Absolute Auto 1.51 K/mm3 (0.9-3.2); Mean Corpuscular HGB Conc 32.1 g/dl (32-36); Mean Corpuscular Hemoglobin 31.5 pg (26-34); Mean Corpuscular Volume 98.0 fl (80-100); Nucleated Red Blood Cells Absolute Auto 0.000 K/mm3 (0.0-0.012); Nucleated Red Blood Cells Perc 0.0 % (0.0-0.2); Platelet Count Result 228 k/mm3 (150-375); Red Blood Count 3.91 M/mm3 (4.2-5.4); White Blood Count 6.9 K/mm3 (4.5-10.0)
[2025-03-02 18:12] LABS: Alanine Aminotransferase 18 U/L (6-35); Albumin Level 4.3 g/dL (3.5-5.1); Alkaline Phosphatase 80 U/L (38-126); Anion Gap 8 mmol/L (4-12); Aspartate Amino Transferase 27 U/L (14-36); Bilirubin,Total 0.3 mg/dL (0.2-1.3); Blood Urea Nitrogen 29 mg/dL (7-17); Calcium 8.9 mg/dL (8.4-10.2); Carbon Dioxide 23 mmol/L (22-30); Chloride 107 mmol/L (98-107); Estimated Glomerular Filt Rate 60; Glucose 135 mg/dL (65-110); Potassium 4.2 mmol/L (3.4-5.0); Sodium 138 mmol/L (137-145); Total Protein 7.2 g/dL (6.3-8.2)
[2025-03-02 19:10] LABS: Thyroid Stimulating Hormone Reflex 2.180 uIU/mL (0.465-4.68)
--- OUTSIDE RECORDS SUMMARY | 2025-03-02 20:25 | XMS_ITS | Encounter Summary ---
Author Organization [facility] Address [address] [place] [address] Phone Care Team Providers Care Director Of Speech Pathology Name Role Phone Magdalena Ruiz MD Primary Care Provider [phone] No, Physician Primary Care Provider [phone] Encounter Details Date Type Department Care Team (Latest Contact Info) Description 03/27/2023 Orders Only [facility] Scanning, Provider Social History Tobacco Use Types Packs/Day Years Used Date Smoking Tobacco: Never Smokeless Tobacco: Never Alcohol Use Standard Drinks/Week Comments No 0 (1 standard drink = 0.6 oz pur e alcohol) AUDIT-C Answer Date Recorded Q1: How often do you have a drink containing alc ohol? 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 Operating Room [address] [place] [address] Vicenta Clement MD [address] [place] [address] 03/08/2025 9:40 AM CDT Anesthesia Event [facility] Operating Room [address] [place] [address] Miguel Pedro MD [address] [place] [address] 03/08/2025 9:40 AM CDT - 03/08/2025 12:[address] [facility] Operating Room [address] [place] [address] Vicenta Clement MD [address] [facility] [address] [place] [address] PLACEMENT BREAST IMPLANT Scheduled Procedures Name Priority Associated Diagnoses Date/Ti me PLACEMENT BREAST IMPLANT Hx of breast reconstruction Rupture of implant of left breast, initial encounter 03/08/2025 9:40 AM CDT CAPSULECTOMY BREAST Hx of breast reconstruction Rupture of implant of left breast, initial encounter 03/08/2025 9:40 AM CDT REMOVAL IMPLANT BREAST Hx of breast reconstruction Rupture of implant of left breast, initial encounter 03/08/2025 9:40 AM CDT documented as of this encounter Procedures Procedure Name Priority Date/Time Associated Diagnosis Comments SCAN - RADIOLOGY/IMAGING 03/27/2023 documented in this encounter Results * SCAN - RADIOLOGY/IMAGING (03/27/2023) Anatomical Region Laterality Modality Other us Provider Scanning Final Result documented in this encounter Visit Diagnoses Not on filedocumented in this encounter Care Teams Director Of Speech Pathology Relationship Specialty Start Date End Date Magdalena Ruiz MD PCP - General Family Medicine 07/24/22 02/22/25 No, Physician PCP - General 02/23/25 documented as of this encounter
--- OUTSIDE RECORDS SUMMARY | 2025-03-02 20:26 | XMS_ITS | Patient Health Record ---
Author Organization [facility] [facility] Address [address] [place] [address] Care Team Providers Care Paper Carrier Name Role Phone Magdalena Ruiz MD Primary Care Provider Sharonda Dave Unavailable [phone] Allergies Allergen (clinical drug ingredient) Drug/Non Drug Allergy documented on EMR Reaction Allergy Type Onset Date Status ampicillin Ampicillin Unknown Drug Allergy 07/22/2023 Acti ve levofloxacin levoFLOXacin Unknown Drug Allergy 07/22/2023 Active levothyroxine Levothyroxine Unknown Drug Allergy Active Reason For Referral No Information Medications Medication SIG (Take, Route, Frequency, Duration) Notes Start Date End Date Status aMILoride HCl 5 mg Tablet Oral 09/26/2023 Unknown Phenazopyridine HCl 100 MG Tablet Oral 09/26/2023 Unknown Benzonatate 100 MG Capsule Oral 09/26/2023 Unknown Fluticasone Propionate Diskus 50 MCG/ACT Aerosol Powder Breath Activated Inhalation *Reorder from [employer] for eRx and Interaction Alerts* 09/26/2023 Unknown Levothyroxine Sodium 75 MCG Tablet Oral 09/26/2023 Unknown Redig 3 *Pick strength-form from [employer] for eRX* 09/26/2023 Unknown Ingrezza 40 mg Capsule Oral 09/26/2023 Unknown SOLIFENACIN 10 MG TABLET *Reorder from [employer] for eRx and Interaction Alerts* 09/26/2023 Unknown QUEtiapine Fumarate 200 MG Tablet 1 tablet Oral Once a day at bedtime; Duration: 90 days Active Omeprazole 20 MG Capsule Delayed Release Oral 09/26/2023 Unknown QUEtiapine Fumarate 25 MG Tablet Oral 09/26/2023 Not-Taking Simvastatin 20 MG Tablet Oral 09/26/2023 Unknown QUEtiapine Fumarate 100 MG Tablet TAKE 2 TABLETS BY MOUTH EVERY DAY AT BEDTIME; Duration: 90 Active Social History Sex Assigned At : Social History Observation Description Sex Assigned At Female Social History Additional Details Category Social Info Options Details Migrated Social History Migrated Social History Alcohol Intake: None 08/28/2022,Tobacco Years: Never smoker 08/28/2022 Problems Problem Type SNOMED Code ICD Code Onset Dates Problem Status W/U Status Risk Notes Problem Bipolar affective disorder, currently depressed, mild ([id number]) Bipolar disorder, current episode depressed, mild (F31.31) Active confirmed Encounters Encounter Location Date Provider Diagnosis [facility] [address] [place] [address] 04/22/2024 Sharonda Narvaez Bipolar disorder, current episode depressed, mild F31.31 Assessments Encounter Date Diagnosis (ICD Code) Assessment Notes Treatment Notes Treatment Clinical Notes Section Notes 04/22/2024 Bipolar disorder, current episode depressed, mild [...] Replacemen t/Advantag e - Ppo [address] [place] [address] [id number] SULTANA SWANSON Self - patient is the insured Medical (General) History Medical History History ICD Code Problems: Bipolar affective disorder, cu rrent episode depression Hyponatremia High cholesterol CKD Surgical History Surgery Date(Month/Year) Reconstructive surgery 09/16/2017 Breast surgery (23354) 09/16/2017
--- OUTSIDE RECORDS SUMMARY | 2025-03-02 20:26 | XMS_ITS | Encounter Summary ---
Author Organization [facility] Address [address] [place] [address] Phone Care Team Providers Care Application Assistant Name Role Phone Magdalena Ruiz MD Primary Care Provider [phone] Peggy Covington MD Unavailable Emilia Jimenes MD Unavailable Vicenta Clement MD Unavailable [phone] Mele Arriaga MD Unavailable Magdalena Ruiz MD Primary Care Provider No, Physician Primary Care Provider [phone] Encounter Details Date Type Department Care Team (Latest Contact Info) Description 10/15/2017 Orders Only [facility] Scanning, Provider Social History Tobacco Use Types Packs/Day Years Used Date Smoking Tobacco: Never Comments Unknown Sex and Gender Information Value Date Recorded Sex Assigned at Not on file Legal Sex Female 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 Operating Room [address] [place] [address] Vicenta Clement MD [address] [place] [address] 03/08/2025 9:40 AM CDT Anesthesia Event [facility] Operating Room [address] [place] [address] Miguel Pedro MD [address] [place] [address] 03/08/2025 9:40 AM CDT - 03/08/2025 12:[address] [facility] Operating Room [address] [place] [address] Vicenta Clement MD [address] [place] [address] PLACEMENT BREAST IMPLANT Scheduled Procedures Name Priority [...] Date/Time Associated Diagnosis Comments SCAN - RADIOLOGY/IMAGING 10/15/2017 documented in this encounter Results * SCAN - RADIOLOGY/IMAGING (10/15/2017) Anatomical Region Laterality Modality Other us Provider Scanning Final Result documented in this encounter Visit Diagnoses Not on filedocumented in this encounter Care Teams Application Assistant Relationship Specialty Start Date End Date Magdalena Ruiz MD PCP - General 07/31/17 07/23/22 Magdalena Ruiz MD [address] [facility], [address] [address] PCP - General Family Medicine 07/24/22 02/22/25 No, Physician PCP - General 02/23/25 Peggy Covington MD Medical Oncologist/[facility] Medical Oncology 11/24/17 06/06/20 Emilia Jimenes MD Surgeon Breast Surgery 11/24/17 03/21/21 Vicenta Clement MD [address] [address] Referring Physician Plastic Surgery 11/24/17 03/21/21 Mele Arriaga MD [address] [facility], [address] [address] Consulting Physician Medical Oncology 06/07/20 1 documented as of this encounter
--- OUTSIDE RECORDS SUMMARY | 2025-03-02 20:26 | XMS_ITS | Encounter Summary ---
Author Organization [facility] Address [address] [place] [address] Care Team Providers Care Online Editor Name Role Phone Magdalena Ruiz MD Primary Care Provider [phone] Peggy Covington MD Unavailable Emilia Jimenes MD Unavailable [phone] Vicenta Clement MD Unavailable Mele Arriaga MD Unavailable Magdalena Ruiz MD Primary Care Provider No, Physician Primary Care Provider [phone] Encounter Details Date Type Department Care Team (Late st Contact Info) Description 08/11/[address] 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 Gender Identity Female 05/16/2021 10:44 AM METAL BUILDING ASSEMBLER Sexual Orientation Straight 12/02/2019 12 :24 PM CDT documented as of this encounter Plan of Treatment Upcoming Encounters Date Type Department Care Team (Latest Contact Info) Description 03/08/2025 9:40 AM CDT Hospital Encounter [facility] Operating Room [address] [place] [address] Vicenta Clement MD [address] [place] [address] 03/08/2025 9:40 AM CDT Anesthesia Event [facility] Operating Room [address] [place] [address] Miguel Pedro MD [address] [place] [address] 03/08/2025 9:40 AM CDT - 03/08/2025 12:05 PM CDT Surgery [facility] Operating Room [address] [place] [address] Vicenta Clement MD [address] [facility] [address] [place] [address] PLACEMENT BREAST IMPLANT Scheduled Procedures Name Priority [...] AM CDT documented as of this encounter Visit Diagnoses Not on filedocumented in this encounter Care Teams Online Editor Relationship Specialty Start Date End Date Magdalena Ruiz MD PCP - General 07/31/17 07/23/22 Magdalena Ruiz MD [address] [facility], [address] [address] PCP - General Family Medicine 07/24/22 02/22/25 No, Physician PCP - General 02/23/25 Peggy Covington MD Medical Oncologist/Electromechanical Equipment Assembler Medical Oncology 11/24/17 06/06/20 Emilia Jimenes MD Surgeon Breast Surgery 11/24/17 03/21/21 Vicenta Clement MD [address] [address] Referring Physician Plastic Surgery 11/24/17 03/21/21 Mele Arriaga MD [address] [facility], [address] [address] Consulting Physician Medical Oncology 06/07/20 1 documented as of this encounter
--- OUTSIDE RECORDS SUMMARY | 2025-03-02 20:26 | XMS_ITS | Encounter Summary ---
Author Organization [facility] Address [address] [place] [address] Phone Care Team Providers Care Programming Development Project Manager Name Role Phone Magdalena Ruiz MD Primary Care Provider [phone] Au SableEmilia ellis MD Unavailable [phone] Vicenta Clement MD Unavailable [phone] Mele Arriaga MD Unavailable Magdalena Ruiz MD Primary Care Provider [phone] No, Physician Primary Care Provider [phone] Encounter Details Date Type Department Care Team (Latest Contact Info) Description 08/24/2020 Orders Only [facility] Scanning, Provider Social History Tobacco Use Types Packs/Day Years Used Date Smoking Tobacco: Never Smokeless Tobacco: Never Alcohol Use Standard Drinks/Week Comments No 0 (1 standard drink = 0.6 oz pur e alcohol) Comments No Sex and Gender Information Value Date Recorded Sex Assigned at Not on file Legal Sex Female 4:40 AM FRAME CATCHER Gender Identity Female 05/16/2021 10:44 AM FRAME CATCHER Sexual Orientation Straight 12/02/2019 12 :24 PM CDT 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 Operating Room [address] [place] [address] Vicenta Clement MD [address] [place] [address] 03/08/2025 9:40 AM CDT Anesthesia Event [facility] Operating Room [address] [address] [address] Miguel Pedro MD [address] [place], [place] [address] 03/08/2025 9:40 AM CDT - 03/08/2025 12:05 PM CDT Surgery [facility] Operating Room [address] [place] [address] Vicenta Clement MD [address] [place] [address] PLACEMENT BREAST IMPLANT Scheduled Procedures Name Priority [...] Date/Time Associated Diagnosis Comments SCAN - RADIOLOGY/IMAGING 08/24/2020 documented in this encounter Results * SCAN - RADIOLOGY/IMAGING (08/24/2020) Anatomical Region Laterality Modality Other us Provider Scanning Final Result documented in this encounter Visit Diagnoses Not on filedocumented in this encounter Care Teams Programming Development Project Manager Relationship Specialty Start Date End Date Magdalena Ruiz MD PCP - General 07/31/17 07/23/22 Magdalena Ruiz MD [address] [facility], [address] [address] PCP - General Family Medicine 07/24/22 02/22/25 No, Physician PCP - General 02/23/25 Emilia Jimenes MD Surgeon Breast Surgery 11/24/17 03/21/21 Vicenta Clement MD [address] [address] Referring Physician Plastic Surgery 11/24/17 03/21/21 Mele Arriaga MD [address] [facility], [address] [address] Consulting Physician Medical Oncology 06/07/20 1 documented as of this encounter
--- OUTSIDE RECORDS SUMMARY | 2025-03-02 20:26 | XMS_ITS | Clinical Summary ---
Author Organization [facility] Address [facility] [place] [address] Care Team Providers Care Honey Processor Name Role Phone No, Physician Primary Care Provider Allergies Active Allergy Reactions Criticality Noted Date Comments Amoxicillin Hives Medium 10/06/2020 Ampicillin Hives,Unknown Medium 05/25/2021 Levofloxacin Other (See comments),Unknown Low 08/28 Medications levothyroxine (SYNTHROID, LEVOTHROID) 75 mcg tabletIndicatio ns:hypothyroidi sm Take 1 tablet (75 mcg total) by mouth daily 1 09/03/19 18 Active magnesium oxide (MAG-OX) 400 mg (241.3 mg elemental) tabletIndicatio ns:supplement Take 1 tablet (400 mg total) by mouth every morning 4 hours after or more after levothyroxine Active simvastatin (ZOCOR) 20 mg tabletIndicatio ns:hyperlipidem ia Take 1 tablet (20 mg total) by mouth every evening 2 09/03/19 18 Active vitamin B complex capsuleIndicati ons:Vitamin Deficiency Prevention Take 1 capsule by mouth every morning Active ascorbic acid, vitamin C, 500 mg capsuleIndicati ons:supplement Take 1 tablet by mouth every morning 4 hours after or more after levothyroxine Active AMILoride (MIDAMOR) 5 mg tabletIndicatio ns:Nephrogenic Diabetes Insipidus,KIDNE Y DYSFUNCTION Take 1 tablet (5 mg total) by mouth every morning Active calcium citrate (CALCITRATE) 950 mg (200 mg of elemental calcium) tabletIndicatio ns:Hypocalcemia Prevention Take 1 tablet (950 mg total) by mouth daily with breakfast 4 hours after or more after levothyroxine Active omega 6-hvi-gxw-fish oil (Fish OiL) 1,000 mg (120 mg-180 mg) capsuleIndicati ons:hypertrigly ceridemia Take 1 capsule (1,000 mg total) by mouth every morning Has not taken in weeks 09/10/19 23 Active QUEtiapine (SEROquel) 200 mg tabletIndicatio ns:Depression Treatment Adjunct Take 1 tablet (200 mg total) by mouth nightly Active ibuprofen (ADVIL,MOTRIN) 400 mg tabletIndicatio ns:Pain Take 1 tablet (400 mg total) by mouth every 6 (six) hours as needed for pain Rare use Active calcium carbonate-simet hicone (Tums-Gas Relief, calc-simeth,) 750-80 mg tablet,chewable Indications:Fla tulence,Heartbu rn Take 1 tablet/chew tab by mouth daily as needed Active glucosamine HCl 1,500 mg tabletIndicatio ns:supplement for joint health Take 2 tablets by mouth every morning 4 hours after or more after levothyroxine Active herbal drugs capsuleIndicati ons:supplement Take 1 tablet by mouth every morning Active advantage supplement Dr. Nieto Active herbal drugs capsuleIndicati ons:supplement for gut health Take 2 tablets by mouth every morning Bio complete [address] Nieto Active herbal drugs capsuleIndicati ons:supplement Take 3 tablets by mouth every morning Total Restore Supplement Dr. Nieto Active herbal drugs capsuleIndicati ons:supplement for Gut Health Take 1 tablet by mouth every morning Gut-Brain Sync Supplement Dr. 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 Assessment & Plan (09/20/2024 3:54 PM CDT): Avoid ear cleaning techniques Consider restarting speech therapy 50 ounces of caffeine free and soda free fluid daily Assessment & Plan (02/25/2023 2:11 PM CDT): Referral to speech therapy for spasmodic dysphonia Primary hypertension 03/18/2022 Overview (09/19/2023): Last Assessment & Plan: BP elevated, No hx of HTN Started Amlodipine 2.5mg daily Outpt follow up Last Assessment & Plan: BP elevated, No hx of HTN Started Amlodipine 2.5mg daily Outpt follow up Bipolar disorder 03/16/2022 Overview (09/19/2023): Last Assessment & Plan: - on lithium - lithium level normal Last Assessment & Plan: - on lithium - lithium level normal Hyperlipidemia 03/16/2022 Overview (09/19/2023): Last Assessment & Plan: - continue statin Last Assessment & Plan: - continue statin Hypothyroidism 03/16/2022 Overview (09/19/2023): Last Assessment & Plan: - normal TSH/fT4 - continue Synthroid Last Assessment & Plan: - normal TSH/fT4 - continue Synthroid Sensorineural hearing loss (SNHL) of both ears 1 Assessment & Plan (02/15/2022 1:51 PM CDT): Avoid ear cleaning techniques Call if wish is to proceed with hearing test Going on 5 week trip to [facility] Bilateral impacted cerumen 02/15/2022 Assessment & Plan (09/20/2024 3:53 PM CDT): Avoid ear cleaning techniques Consider restarting speech therapy 50 ounces of caffeine free and soda free fluid daily Assessment & Plan (02/25/2023 2:11 PM CDT): Avoid ear cleaning techniques Avoid water to ears Assessment & Plan (02/15/2022 11:31 AM CDT): Avoid ear cleaning techniques Dyskinesia 11/09/2021 Assessment & Plan (10/06/2024 2:11 PM CDT): Ms. Love Santiago is a 73 y.o. female, who presents for follow-up for dyskinesias (choreiform movements) and tremor. She is about the same since the last visit. She has been off medications for the movements. They are not bothersome. Tremor is much better since discontinuation of lithium. She remains on quetiapine for the mood and reports mild jaciel. We discussed her symptoms and given lack of limitations, we will not proceed with any additional medication. Plan: Continue to monitor the involuntary movements. Potential medication side effects were discussed during the encounter. Assessment & Plan (11/09/2021 1:55 PM CDT): Ms. Love Santiago is a 70 y.o. [...] medication. She is considering a move to [place] and is also concerned about cost and [...] side effects were discussed during the encounter. Tremor 12/10/2019 Assessment & Plan (04/22/2024 1:09 PM OUTSIDE SALES PROFESSIONAL): Ms. Love Santiago is a 73 y.o. 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 She is better in the last year in regards to tremor. Since stopping lithium, her tremor is dramatically better. She is instead on quetiapine and was less manic today but still a bit grandiose and she continues with Psychiatry and at my behest at last visit, had an increase in quetiapine. She remains independent for ADLs. 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 If tremor worsened again, we could consider symptomatic treatment of the tremor. She does have history of TD which remains not bothersome and she has not noted much worsening with quetiapine but we will need to keep an eye on this moving forward. Plan: Stay off of lithium if possible given the improvement in tremor. However, her jaciel takes precedence here. Agree with bigger doses of quetiapine with psychiatry. No symptomatic treatment for tremor needed today. Potential medication side effects were discussed during the encounter. Assessment & Plan (09/25/2023 1:28 PM CDT): Ms. Love Santiago is a 72 y.o. female, who presents for follow-up for essential tremor (ET) and dyskinesia of unknown etiology. She is better since the last visit in regards to tremor. Since stopping lithium, her tremor is dramatically better. She is instead on 100 mg of quetiapine but I have big concerns about her BPAD as she is incredibly manic today and was talking nearly nonstop, with rapid speech and some flight of ideas, making some connections between life events or people that may not really be related. I have asked her to please continue to f/u with her Psychiatrist and increase the quetiapine to 200 mg qhs as planned over the weekend with a phone call. She remains independent for ADLs. 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 If tremor worsened again, we could consider symptomatic treatment of the tremor after the jaciel is better managed. She does have history of TD which remains not bothersome and she has not noted much worsening with quetiapine but we will need to keep an eye on this moving forward. Plan: Stay off of lithium if possible given the improvement in tremor. However, her jaciel takes precedence here. Agree with bigger dose of quetiapine, 200 mg qhs given that she is clearly manic today. Please continue close f/u with Psychiatry. Could continue botulinin for vocal tremor. Potential medication side effects were discussed during the encounter. Assessment & Plan (08/08/2022 2:47 PM CDT): Ms. Love Santiago is a 71 y.o. female, who presents for follow-up for essential tremor (ET) and dyskinesia of unknown etiology. She is worse since the last visit. 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 The tremor has limited her to write and use the computer. She remains independent for ADLs. She feels she is not really back to her baseline yet and continues to feel thirsty all the time. We had a long discussion about her symptoms. This recent worsening is a consequence of recent medical problem and there is a high chance she will return to the way she was before. We could consider symptomatic treatment of the tremor after the diabetes insipidus is better managed and will depend on whether medication changes are done and the potential interaction with drugs used to treat ET. Dyskinesias remain not bothersome and she has not even noted them. Plan: 1. Contact the clinic once you have the recommendation from the psychiatrist about what to do with your medication. We will assess at the time how your tremor is doing and will determine whether we should start a medication for tremor, such as propranolol or primidone. Potential medication side effects were discussed during the encounter. Assessment & Plan (04/03/2021 11:26 AM OUTSIDE SALES PROFESSIONAL): Ms. Love Santiago is a 70 y.o. [...] side effects were discussed during the encounter. Assessment & Plan (10/06/2020 3:39 PM CDT): Ms. Love Santiago is a 69 y.o. female, who presents for evaluation of tremor and chorea. She has had tremor for about the past 2 years (2018 or 2019). The tremor is limited to her hands and it is noticeable during actions, such as writing and using tweezers. She is only mildly bothered by the tremor. She has been on metoprolol at what she thinks was a low dose and did not notice much difference but had no side effects. On exam, she had mild postural and action tremor as well as mild generalized chorea, mainly of the upper body, sparing the face.. She had a single prior exposure to haloperidol (depot shot) in 1988 and chorea started in about 2009. She has not been on other neuroleptics and has been on the same dose of lithium for years. There is no family history of any degenerative disease. Her chorea may be tardive in nature but I will check to make sure Dr. Pandey does not want any lab workup or MRI since this has never been worked up in the past. Her hand tremor likely represents ET although lithium could perhaps be a causal factor. She is taking 40 mg of Ingrezza for chorea which has not helped thus far. Though she isn't bothered much by the chorea, she wants to move to a higher dose to see if it would be helpful and if not, will stop this drug. She doesn't believe the tremor is substantial enough to treat but primidone could be considered (she worries for worsened depression or balance) or propranolol could be considered or even topirimate. Plan: - She will contact us about whether she would like to take primidone or propranolol.\ - I will ask Dr. Pandey if she needs any further workup for her chorea. - She may increase the Ingrezza to 80 mg/day to see if it helps chorea. - If depression worsens, she should talk to her psychiatrist. Assessment & Plan (12/10/2019 1:52 PM CDT): Ms. Love Santiago is a 69 y.o. female, who presents for evaluation of tremor. She has had tremor for the past 18 months. The tremor is limited to her hands and it is noticeable during actions, such as writing and using tweezers. She is bothered by the tremor. She has been on metoprolol and did not notice much difference. In addition, she reports her friends have mentioned to her in the past she looked restless. A consulting psychiatrist mentioned she could have a movement disorder a couple of years ago. She had not even noticed. She had prior exposure to haloperidol and has been on the same dose of lithium for years. There is no family history of any degenerative disease. On examination, there is postural and kinetic tremor in the hands along with very mild intermittent generalized chorea. 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 We discussed the pathophysiology and treatment strategies of both conditions. She would like to adjust her medication regimen to improve the tremor. We talked about primidone and its potential side effects, but she would like to read about it before taking it. She would have to transition from metoprolol to primidone. The chorea does not bother her and she decided not to take any medication for it. Plan: - She will contact us about whether she would like to take primidone. HX: breast cancer 09/02/2018 Atypical ductal hyperplasia of breast 09/02/2018 Acquired absence of left breast 09/02/2018 Use of anastrozole (Arimidex) 07/28/2018 Malignant neoplasm of lower- outer quadrant of left female breast 11/27/2017 Cancer Staging:Clinical stage from 09/27/2017:Stage IB(cT2, cN0(sn), cM0, G1, ER: Positive, OK: Positive, HER2: Negative, Oncotype DX score: 12) - Signed by Peggy Covington MD on 11/27/2017 S/P breast reconstruction, left 10/14/2017 ER+ (estrogen receptor positive status) 09/20/19 18 Neoplasm of unspecified behavior of unspecified site 09/19/2017 Infiltrating ductal carcinoma of breast 07/30/19 18 Encounters Date Type Department Care Team Description 02/04/2025 11:11 AM CDT - 02/04/2025 11:59 PM CDT Hospital Encounter [facility] Imaging and Radiology [address] [place] [address] Screening mammogram, encounter for Discharge Disposition: Discharge to home or self care 02/04/2025 10:00 AM CDT Office Visit [facility] Medicine Oncology [address] [place] [address] Tete Allan NP Malignant neoplasm of lower-outer quadrant of left female breast, unspecified estrogen receptor status (HCC) from Last 3 Months Immunizations Immunization Administration Dates Next Due Influenza, Quad, Adjuvantated, Intramuscular 02/2020 Influenza, Quadrivalent, Split, Intramuscular Influenza, Quadrivalent, Spl it, Preservative Free, Intramuscular 02/26/2019 Pneumococcal Conjugate PCV 13 04/10/2018 Surgical History Surgery Date Site/Laterality Comments MASTECTOMY 05/12/2017 - 05/11/2018 Bilateral COLONOSCOPY Medical History Medical History Date Comments History of bilateral mastectomy Breast cancer (HCC) 2017 lt breast Hyperlipidemia Bipolar disorder Diabetes insipidus, 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 09/02/2018 PONV (postoperative nausea a nd vomiting) with mastectomy, reports sev ere post op pain after requiring additional medication resulting in PONV, none with colonoscopy Family History Medical History Relation Name Comments No Known Problems Brother Heart disease Father Heart failure Father Breast cancer Mother Adenocarcinoma of breast - (Added by TW Conv)/Adenocarcinoma of breast - (Added by TW Conv) Cancer Mother Anesthesia problems Neg Hx Endometrial cancer Neg Hx Ovarian cancer Neg Hx Pancreatic cancer Neg Hx Parkinsonism Neg Hx Prostate cancer Neg Hx Thyroid cancer Neg Hx Tremor Neg Hx Relation Name Status Comments Brother Alive Father Alive Mother Social History Tobacco Use Types Packs/Day Years Used Date Smoking Tobacco: Never Smokeless Tobacco: Never Tobacco Cessation:Counseling Given: Not Answered Alcohol Use Standard Drinks/Week Comments No 0 (1 standard drink = 0.6 oz pur e alcohol) AUDIT-C Answer Date Recorded Frequency of Alcohol Consumption Not on file 02/23/2025 Q2: How many drinks containi ng alcohol do you have on a typical day when you are drinking? 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 Not on file Not on file Not on file Obstetrics History Para Term AB IAB SAB Ectopic Multiple Livin g Live Births 1 0 Date Outcome GA Total Labor Labor/2nd/3rd Weight Sex Type Anes PTL Almaz A1 A5 Name Clin Last Filed Vital Signs Vital Sign Reading Time Taken Comments Blood Pressure 162/98 02/04/2025 9:59 AM CDT Pulse 81 02/04/2025 9:59 AM CDT Temperature 36.4 C (97.5 F) 02/04/2025 9:59 AM CDT Respiratory Rate 18 02/04/2025 9:59 AM CDT Oxygen Saturation 97% 02/04/2025 9:59 AM CDT Inhaled Oxygen Concentration - - Weight 65.8 kg (145 lb) 02/23/2025 3:32 PM CDT Height 165.1 cm (5' 5) 02/23/2025 3:32 PM CDT Body Mass Index 24.13 02/23/2025 3:32 PM CDT Plan of Treatment Upcoming Encounters Date Type Department Care Team (Latest Contact Info) Description 03/08/2025 9:40 AM CDT Hospital Encounter [facility] Operating Room [address] [address] [address] Vicenta Clement MD [address] [place] [address] 03/08/2025 9:40 AM CDT Anesthesia Event [facility] Operating Room [address] [address] [place] [address] Miguel Pedro MD [address] [place] [address] 03/08/2025 9:40 AM CDT - 03/08/2025 12:05 PM CDT Surgery [facility] Operating Room [address] [address] [place] [address] Vicenta Clement MD [address] [place] [address] PLACEMENT BREAST IMPLANT Scheduled Procedures Name Priority [...] breast, initial encounter 03/08/2025 9:40 AM CDT Health Maintenance Due Date Last Done Comments Colon Cancer Screening-Colonoscopy 1950 Fall Risk Assessment 1950 Hepatitis C Screening 1950 Osteoporosis Screening-Bone Density Scan 1950 DTaP/Tdap/Td Vaccine (1 - Tdap) 1960 Hepatitis B Screening 11/30/1967 Zoster Vaccine (1 of 2) 11/30/1999 Well Visit 65+ 2014 Influenza Vaccine (#1) 2025 0, 01/20/2020, 02/26/2019 Depression Screening 04/19/2025 04/19/2024 Pneumococcal vaccine 65+ Completed 04/15/2019, 03/14 Breast Cancer Screening-Mammogram Discontinued 02/04/2025, 01/17/2023, 01/10/2022, Additional history exists Goals Goal Patient Goal Type Associated Problems Recent Progress Patient-Stated? Author Autogenera jw Goal Care Plan Autogenerated Problem No Paula Cota RN Procedures Procedure Name Priority Date/Time Associated Diagnosis Comments SCREENING MAMMOGRAM RIGHT W FEDERICO UNILATERAL ONLY Schedule Routine, Read Routine (OP Routine) 02/04/2025 11:25 AM CDT Screening mammogram, encounter for from Last 3 Months Results * Screening Mammogram Right W Federico Unilateral Only (02/04/2025 11:25 AM CDT) Anatomical Region Laterality Modality Breast Right Mammography Impressions 02/04/2025 12:13 PM CDT No evidence of malignancy. OVERALL BI-RADS FINAL ASSESSMENT: 1 - Negative RECOMMENDATION: Recommend right breast annual screening mammography. Narrative 02/04/2025 12:13 PM CDT EXAMINATION: Screening Mammogram Right W Federico Unilateral Only: 02/04/2025 COMPARISON: Relevant prior studies available at the time of interpretation were reviewed, including the most recent mammogram on: 09/22/2023. TECHNIQUE: Mammography was performed with 2D and 3D digital breast tomosynthesis (DBT) images. CAD was utilized. BREAST PARENCHYMAL COMPOSITION: The breasts are heterogeneously dense, which may obscure small masses. FINDINGS: There is no suspicious mass, calcification, or architectural distortion. Tete Allan MOBILE NURSE IMG MAMMO PROCEDURES Final Result from Last 3 Months Additional Health Concerns Active Problems Noted Date Diagnosed Date Autogenerated Problem 01/11/2025 Insurance AETNA MEDICARE AETNA MEDICARE Advance Directives For more information, please contact: [phone] Documents on File Type Date Recorded Patient Nuclear Cardiology Technologist Expl anation ADVANCE DIRECTIVE 09/16/2017 5:37 AM ADVANCE DIRECTIVE 09/16/2017 Advance Di rective Checklist Care Teams Honey Processor Relationship Specialty Start Date End Date No, Physician PCP - General 02/23/25
--- OUTSIDE RECORDS SUMMARY | 2025-03-02 20:26 | XMS_ITS | Encounter Summary ---
Author Organization [facility] Address [address] [place] [address] Phone Care Team Providers Care Vest Finisher Name Role Phone Magdalena Ruiz MD Primary Care Provider Peggy Covington MD Unavailable Emilia Jimenes MD Unavailable Vicenta Clement MD Unavailable Mele Arriaga MD Unavailable Magdalena Ruiz MD Primary Care Provider [phone] No, Physician Primary Care Provider [phone] Encounter Details Date Type Department Care Team (Late st Contact Info) Description 10/09/2017 Orders Only [facility] ProviderMarika MD [address] [place] [id number] Social History Tobacco Use Types Packs/Day Years Used Date Smoking Tobacco: Never Comments Unknown Sex and Gender Information Value Date Recorded Sex Assigned at Not on file Legal Sex Female 4:40 AM PERSONAL CARE AIDE Gender Identity Female 05/16/2021 10:44 AM PERSONAL CARE AIDE Sexual Orientation Straight 12/02/2019 12 :24 PM CDT documented as of this encounter Plan of Treatment Upcoming Encounters Date Type Department Care Team (Latest Contact Info) Description 03/08/2025 9:40 AM CDT Hospital Encounter [facility] Operating Room [address] [place] [address] Vicenta Clement MD [address] [place] [address] 03/08/2025 9:40 AM CDT Anesthesia Event [facility] Operating Room [address] [place] [address] Miguel Pedro MD [address] [place] [address] 03/08/2025 9:40 AM CDT - 03/08/2025 12:05 PM CDT Surgery [facility] Operating Room [address] [place] [address] Vicenta Clement MD [address] [place] [address] PLACEMENT BREAST IMPLANT Scheduled Procedures Name Priority [...] Procedure Name Priority Date/Time Associated Diagnosis Comments DISCHARGE LABORATORY CUMULATIVE REPORT 10/09/2017 12:00 AM CDT documented in this encounter Results * DISCHARGE LABORATORY CUMULATIVE REPORT (10/09/2017 12:00 AM CDT) Narrative 10/09/2017 12:00 AM CDT Ordered by an unspecified provider. us Historical Provider LAB BLOOD ORDERABLES Marjan l Result documented in this encounter Visit Diagnoses Not on filedocumented in this encounter Care Teams Vest Finisher Relationship Specialty Start Date End Date Magdalena Ruiz MD PCP - General 07/31/17 07/23/22 Magdalena Ruiz MD [address] [facility], [address] [address] PCP - General Family Medicine 07/24/22 02/22/25 No, Physician PCP - General 02/23/25 Peggy Covington MD Medical Oncologist/Labor Gang Supervisor Medical Oncology 11/24/17 06/06/20 Emilia Jimenes MD Surgeon Breast Surgery 11/24/17 03/21/21 Vicenta Clement MD [address] [address] Referring Physician Plastic Surgery 11/24/17 03/21/21 Mele Arriaga MD [address] [facility], [address] [address] Consulting Physician Medical Oncology 06/07/20 1 documented as of this encounter
== END 2025-03-02 17:37 | disposition home or self-care (01) ==
PROVIDERS: PCP Student in an Organized Health Care Education/Training Program; Visit Provider Family Medicine
DX: E03.9 Hypothyroidism, unspecified (principal); R53.83 Other fatigue; E23.2 Diabetes insipidus
CPT/HCPCS: 36415; 80053; 84443; 85025

== ENCOUNTER 2025-05-02 12:55 | Outpatient (CLI) | payer MEDICARE, SELFPAY ==
--- NOTE | ~2025-05-02 | DEXA_ITS ---
Bone Density Report Name: SULTANA SWANSON Age: 74 Sex: Female Ethnicity: White Date of : 1950 Indication: postmenopausal; screening for osteoporosis; prior fracture; cancer; Referring Provider: DARRON, ELIZABETH Study: Bone densitometry was performed. Exam Date: May 02, 2025 Accession number: [id number] Bone Density: Region BMD T-score Z-score Classification AP Spine(L2, L3, L4) 1.188 1.0 3.5 Normal Femoral Neck (Left) 0.760 -0.8 1.3 Normal Total Hip (Left) 0.940 0.0 1.8 Normal Femoral Neck (Right) 0.793 -0.5 1.6 Normal Total Hip (Right) 0.909 -0.3 1.5 Normal Total Hip Mean 0.924 -0.2 1.7 Normal World Health Organization criteria for BMD impression classify patients as: Normal (T-score at or above -1.0), Osteopenia (T-score between -1.0 and -2.5), or Osteoporosis (T-score at or below -2.5). Previous Exams: Region Exam Age BMD T-score BMD Change BMD Change Date g/cm2 vs Baseline vs Previous AP Spine (L2-L4) 05/02/2025 74 1.188 1.0 -0.096 (-7.5%) 0.004 (0.3%) 03/27/2023 72 1.185 1.0 -0.100 (-7.8%) -0.100 (-7.8%) 08/24/2020 69 1.284 1.9 Total Hip(Left) 05/02/2025 74 0.940 0.0 -0.049 (-4.9%) 0.002 (0.2%) 03/27/2023 72 0.938 0.0 -0.050 (-5.1%) -0.050 (-5.1%) 08/24/2020 69 0.988 0.4 Total Hip(Right) 05/02/2025 74 0.909 -0.3 -0.048 (-5.0%) -0.028 (-3.0%) 03/27/2023 72 0.938 0.0 -0.020 (-2.1%) -0.020 (-2.1%) 08/24/2020 69 0.957 0.1 *Denotes significance at 95% confidence level, LSC for AP Spine = 0.022 g/cm2, LSC for Total Hip = 0.027 g/cm2 Clinical Information Provided by Patient: Has had a low trauma fracture Has used the following medications: Vitamin D, Calcium Has the following medical conditions: Cancer Patient maximum height was 66 Menopause Age: 54 Onset of menses at age 12 Number of children 0 Impression: The patient has normal bone mass. The patient has risk factors, including: previous fracture. The BMD for the Total Hip(Right) decreased, changing by -3.0% since the last DXA exam. Discussion: BONE DENSITY IS ABOVE THE MINIMUM DESIRABLE LEVEL AT ALL SKELETAL SITES TESTED. This patient?s bone mineral density is above the minimum desirable level (T-score -1.0 or better) at all sites measured. The patient should follow a healthful lifestyle (good nutrition with adequate calcium and vitamin D, and appropriate weight-bearing exercise). Follow-Up: Consider repeating this study in 3 to 4 years to reassess this patient's status, or sooner if there is some new clinical indication. Reported by: MICHELL on 05/02/2025 1:39:00 PM. Reviewed, dictated and finalized at location A.
--- OUTSIDE RECORDS SUMMARY | 2025-05-02 14:29 | XMS_ITS | Encounter Summary ---
Author Organization [facility] Address [address] [place] [address] Phone Care Team Providers Care Diagnostic Imaging Manager Name Role Phone Magdalena Ruiz MD Primary Care Provider [phone] Peggy Covington MD Unavailable Emilia Jimenes MD Unavailable Vicenta Clement MD Unavailable Mele Arriaga MD Unavailable Magdalena Ruiz MD Primary Care Provider [phone] No, Physician Primary Care Provider [phone] Encounter Details Date Type Department Care Team (Latest Contact Info) Description 10/15/2017 Orders Only [facility] Scanning, Provider Social History Tobacco Use Types Packs/Day Years Used Date Smoking Tobacco: Never Comments Unknown Sex and Gender Information Value Date Recorded Sex Assigned at Not on file Legal Sex Female 4:40 AM SHAREPOINT CONSULTANT Gender Identity Female 05/16/2021 10:44 AM SHAREPOINT CONSULTANT Sexual Orientation Straight 12/02/2019 12 :24 PM CDT documented as of this encounter Plan of Treatment Not on file documented as of this encounter Procedures Procedure Name Priority Date/Time Associated Diagnosis Comments SCAN - RADIOLOGY/IMAGING 10/15/2017 documented in this encounter Results * SCAN - RADIOLOGY/IMAGING (10/15/2017) Anatomical Region Laterality Modality Other us Provider Scanning Final Result documented in this encounter Visit Diagnoses Not on filedocumented in this encounter Care Teams Diagnostic Imaging Manager Relationship Specialty Start Date End Date Magdalena Ruiz MD PCP - General 07/31/17 07/23/22 Magdalena Ruiz MD [address] [place] [address] PCP - General Family Medicine 07/24/22 02/22/25 No, Physician PCP - General 02/23/25 Peggy Covington MD Medical Oncologist/Brands Editor Medical Oncology 11/24/17 06/06/20 Emilia Jimenes MD Surgeon Breast Surgery 11/24/17 03/21/21 Vicenta Clement MD [address] [place] [address] Referring Physician Plastic Surgery 11/24/17 03/21/21 Mele Arriaga MD [address] [place] [address] Consulting Physician Medical Oncology 06/07/20 1 documented as of this encounter
--- OUTSIDE RECORDS SUMMARY | 2025-05-02 14:29 | XMS_ITS | Patient Health Record ---
Author Organization [facility] [employer] Address [address] [place] [address] Care Team Providers Care Territory Manager General Sales Name Role Phone Magdalena Ruiz MD Primary Care Provider UnavailSharonda Barajas Unavailable [phone] Sharla, Anni Unavailable [phone] Allergies Allergen (clinical drug ingredient) Drug/Non Drug [...] HCl 100 MG Tablet Oral 09/26/2023 Unknown QUEtiapine Fumarate 200 MG Tablet 1 tablet Oral Once a day at bedtime; Duration: 90 days Not-Taking SOLIFENACIN 10 MG TABLET *Reorder from [employer] for eRx and Interaction Alerts* 09/26/2023 Unknown Ingrezza 40 mg Capsule Oral 09/26/2023 Unknown QUEtiapine Fumarate 25 MG Tablet Oral 09/26/2023 Not-Taking QUEtiapine Fumarate 100 MG Tablet TAKE 2 TABLETS BY MOUTH EVERY DAY AT BEDTIME; Duration: 90 Active Omeprazole 20 MG Capsule Delayed Release Oral 09/26/2023 Unknown Fluticasone Propionate Diskus 50 MCG/ACT Aerosol Powder Breath Activated Inhalation *Reorder from [employer] for eRx and Interaction Alerts* 09/26/2023 Unknown Benzonatate 100 MG Capsule Oral 09/26/2023 Unknown Bluefield 3 *Pick strength-form from [employer] for eRX* 09/26/2023 Unknown Levothyroxine Sodium 75 MCG Tablet Oral 09/26/2023 Unknown aMILoride HCl 5 mg Tablet Oral 09/26/2023 Unknown Simvastatin 20 MG Tablet Oral 09/26/2023 Unknown Social History Sex Assigned At : Social History Observation Description Sex Assigned At Female Social History Additional Details Category Social Info Options Details Migrated Social History Migrated Social History Alcohol Intake: None 08/28/2022,Tobacco Years: Never smoker 08/28/2022 Problems Problem Type SNOMED Code ICD Code Onset Dates Problem Status W/U Status Risk Notes Problem Bipolar affective disorder, currently depressed, mild (826004137) Bipolar disorder, current episode depressed, mild (F31.31) Active confirmed Vital Signs Heart Rate 85 /min 05/02/2025 Height-cm 167.64 cm 05/02/2025 Blood pressure diastolic 89 mm Hg 05/02/2025 Weight-kg 66.23 kg 05/02/2025 Height 66.00 in 05/02/2025 Blood pressure systolic 130 mm Hg 05/02/2025 Weight 146 lbs 05/02/2025 BMI 23.56 kg/m2 05/02/2025 Encounters Encounter Location Date Provider Diagnosis [facility] [employer] [address] [address] 05/02/2025 Anni Magdaleno Assessments Encounter Date Diagnosis (ICD Code) Assessment Notes Treatment Notes Treatment Clinical Notes Section Notes 05/02/2025 Other Past meds: Finderne Plan Of Treatment No Information Insurance Providers Payer Name Payer Address Payer Phone Subscriber Number Group Number Insured Name Patient Relationship to Insured Coverage Start Date Coverage End Date Aetna Medicare Replacemen t/Advantag e - Ppo [address] [place] [address] [id number] KIKI SULTANA Self - patient is the insured Medical (General) History Medical History History ICD Code Problems: Bipolar affective disorder, cu rrent episode depression Hyponatremia High cholesterol CKD Surgical History Surgery Date(Month/Year) Reconstructive surgery 09/16/2017 Breast surgery (81816) 09/16/2017 there was a rupture in the implant 03/08 Hospitalization History Reason Date(Month/Year) oupatient surgery for the ruptured impla nt 03/08/25
--- OUTSIDE RECORDS SUMMARY | 2025-05-02 14:29 | XMS_ITS | Encounter Summary ---
Author Organization [facility] Address [address] [place] [address] Phone Care Team Providers Care Suction Drum Drier Operator Name Role Phone Magdalena Ruiz MD Primary Care Provider [phone] Emilia Jimenes MD Unavailable [phone] Vicenta Clement MD Unavailable [phone] Mele Arriaga MD Unavailable Magdalena Ruiz MD Primary Care Provider [phone] No, Physician Primary Care Provider [phone] Encounter Details Date Type Department Care Team [...] on file Legal Sex Female 4:40 AM VP [employer]PORATE [employer] Gender Identity Female 05/16/2021 10:44 AM [employer] Sexual Orientation Straight 12/02/2019 12 :24 PM CDT Occupation Industry Job Start 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 Not on file Not on file [...] on filedocumented in this encounter Care Teams Suction Drum Drier Operator Relationship Specialty Start Date End Date Magdalena Ruiz MD PCP - General 07/31/17 07/23/22 Magdalena Ruiz MD [address] [place] [address] PCP - General Family Medicine 07/24/22 02/22/25 No, Physician PCP - General 02/23/25 Emilia Jimenes MD Surgeon Breast Surgery 11/24/17 03/21/21 Vicenta Clement MD [address] [place] [address] Referring Physician Plastic Surgery 11/24/17 03/21/21 Mele Arriaga MD [address] [place] [address] Consulting Physician Medical Oncology 06/07/20 1 documented as of this encounter
--- OUTSIDE RECORDS SUMMARY | 2025-05-02 14:29 | XMS_ITS | Clinical Summary ---
Author Organization [facility] Address [address] [place] [address] Care Team Providers Care Automobile Tire Builder Name Role Phone No, Physician Primary Care Provider Allergies Active Allergy Reactions Criticality Noted Date Comments Amoxicillin Hives Medium 10/06/2020 Ampicillin Hives,Unknown Medium 05/25/2021 Levofloxacin Other (See comments),Unknown Low 08/28 Medications levothyroxine (SYNTHROID, LEVOTHROID) 75 mcg tabletIndications: hypothyroidism Take 1 tablet (75 mcg total) by mouth daily 1 09/03/19 18 Active magnesium oxide (MAG-OX) 400 mg (241.3 mg elemental) tabletIndications: supplement Take 1 tablet (400 mg total) by mouth every morning 4 hours after or more after levothyroxine Active simvastatin (ZOCOR) 20 mg tabletIndications: hyperlipidemia Take 1 tablet (20 mg total) by mouth every evening 2 09/03/19 18 Active vitamin B complex capsuleIndications :Vitamin Deficiency Prevention Take 1 capsule by mouth every morning Active ascorbic acid, vitamin C, 500 mg capsuleIndications :supplement Take 1 tablet by mouth every morning 4 hours after or more after levothyroxine Active AMILoride (MIDAMOR) 5 mg tabletIndications: Nephrogenic Diabetes Insipidus,KIDNEY DYSFUNCTION Take 1 tablet (5 mg total) by mouth every morning Active calcium citrate (CALCITRATE) 950 mg (200 mg of elemental calcium) tabletIndications: Hypocalcemia Prevention Take 1 tablet (950 mg total) by mouth daily with breakfast 4 hours after or more after levothyroxine Active omega 3-bup-wbd-fish oil (Fish OiL) 1,000 mg (120 mg-180 mg) capsuleIndications :hypertriglyceride kra Take 1 capsule (1,000 mg total) by mouth every morning Has not taken in weeks 09/10/19 23 Active QUEtiapine (SEROquel) 200 mg tabletIndications: Depression Treatment Adjunct Take 1 tablet (200 mg total) by mouth nightly Active ibuprofen (ADVIL,MOTRIN) 400 mg tabletIndications: Pain Take 1 tablet (400 mg total) by mouth every 6 (six) hours as needed for pain Rare use Active calcium carbonate-simethic one (Tums-Gas Relief, calc-simeth,) 750-80 mg tablet,chewableInd ications:Flatulenc e,Heartburn Take 1 tablet/chew tab by mouth daily as needed Active glucosamine HCl 1,500 mg tabletIndications: supplement for joint health Take 2 tablets by mouth every morning 4 hours after or more after levothyroxine Active herbal drugs capsuleIndications :supplement Take 1 tablet by mouth every morning Active advantage supplement Dr. Nieto Active herbal drugs capsuleIndications :supplement for gut health Take 2 tablets by mouth every morning Bio complete [address] Nieto Active herbal drugs capsuleIndications :supplement Take 3 tablets by mouth every morning Total Restore Supplement Dr. Nieto Active herbal drugs capsuleIndications :supplement for Gut Health Take 1 tablet by mouth every morning Gut-Brain Sync Supplement Dr. Nieto Active celecoxib (CeleBREX) 200 mg capsuleIndications :Postoperative Acute Pain Take 1 capsule the evening before surgery, then 1 capsule two times daily for 7 days. 14 capsule 03/03/20 25 Active docusate sodium (COLACE) 100 mg capsuleIndications :constipation Take 1 capsule (100 mg total) by mouth 3 (three) times a day Start 2 days preop and continue 3 days post op then continue as needed 30 capsule 03/03/20 25 Active ondansetron ODT (ZOFRAN-ODT) 4 mg disintegrating tabletIndications: S/P breast reconstruction Dissolve one tablet under the tongue at bedtime the evening before surgery. 1 tablet 03/03/20 25 Active tiZANidine (ZANAFLEX) 2 mg tabletIndications: S/P breast reconstruction Take 1 tablet (2 mg total) by mouth every 6 (six) hours as needed for muscle spasms 45 tablet 03/03/20 25 Active pregabalin (LYRICA) 75 mg capsuleIndications :S/P breast reconstruction Take 1 capsule (75 mg total) by mouth 2 (two) times a day for 7 days Beginning with one tablet at bedtime the evening before surgery. 14 capsule 03/03/20 25 Active Active Problems Problem Noted Date Diagnosed Date Breast implant status 03/08/2025 Hx of breast reconstruction 01/11/2025 Rupture of [...] test Going on 5 week trip to [facility] Bilateral impacted cerumen 02/15/2022 Assessment & Plan [...] & Plan (10/06/2024 2:11 PM CDT): Ms. Sultana Swanson is a 73 y.o. female, who presents [...] & Plan (11/09/2021 1:55 PM CDT): Ms. Sultana Swanson is a 70 y.o. female, who presents [...] medication. She is considering a move to [place] and is also concerned about cost and [...] 12/10/2019 Assessment & Plan (04/22/2024 1:09 PM GLASS CUTTING MACHINE OPERATOR): Ms. Sutlana Swanson is a 73 y.o. female, who presents [...] & Plan (09/25/2023 1:28 PM CDT): Ms. Sultana Swanson is a 72 y.o. female, who presents [...] & Plan (08/08/2022 2:47 PM CDT): Ms. Sultana Swanson is a 71 y.o. female, who presents [...] encounter. Assessment & Plan (04/03/2021 11:26 AM GLASS CUTTING MACHINE OPERATOR): Ms. Sultana Swanson is a 70 y.o. female, who presents [...] & Plan (10/06/2020 3:39 PM CDT): Ms. Sultana Swanson is a 69 y.o. female, who presents [...] & Plan (12/10/2019 1:52 PM CDT): Ms. Sultana Swanson is a 69 y.o. female, who presents [...] 09/27/2017:Stage IB(cT2, cN0(sn), cM0, G1, ER: Positive, OR: Positive, HER2: Negative, Oncotype DX score: 12) - Signed by Peggy Covington MD on 11/27/2017 S/P breast reconstruction, left 10/14/2017 ER+ (estrogen receptor positive status) 09/20/19 18 Neoplasm of unspecified behavior of unspecified site 09/19/2017 Infiltrating ductal carcinoma of breast 07/30/19 18 Encounters Date Type Department Care Team Description 04/25/2025 Telephone [facility] Surgery [address] [place] [address] [address] [address] Vicenta Clement MD 04/04/2025 11:15 AM GLASS CUTTING MACHINE OPERATOR Telemedicine [facility] Surgery [address] [place] [address] [address] [address] Vicenta Clement MD S/P breast reconstruction (Primary Dx) 03/18/2025 11:30 AM GLASS CUTTING MACHINE OPERATOR Office Visit [facility] Surgery [address] [place] [address] [address] [address] S/P breast reconstruction (Primary Dx) 03/08/2025 9:40 AM CDT - 03/08/2025 12:05 PM CDT Surgery [facility] Operating Room [address] [place] [address] Vicenta Clement MD PLACEMENT BREAST IMPLANT 03/08/2025 9:10 AM CDT Anesthesia Event [facility] Operating Room [address] [place] [address] Filiberto Chanel MD Khodamoradi, Shahrdad, MD 03/08/2025 6:47 AM CDT - 03/09/2025 9:46 AM CDT Hospital Encounter [facility] [address] [place] [address] Vicenta Clement MD S/P breast reconstruction, left (Primary Dx); Hx of breast reconstruction; Rupture of implant of left breast, initial encounter Discharge Disposition: Discharge to home or self care 02/04/2025 11:11 AM CDT - 02/04/2025 11:59 PM CDT Hospital Encounter [facility] [address] [place], [place] [address] [address] Screening mammogram, encounter for Discharge Disposition: Discharge to home or self care 02/04/2025 10:00 AM CDT Office Visit [facility] Medicine Oncology [address] [place] [address] Tete Allan, ARNALDO Malignant neoplasm of lower-outer quadrant of left [...] often do you have a drink containing alcohol? Never 03/08/2025 Q2: How many drinks containi ng alcohol do you have on a typical day when you are drinking? Patient does not drink Q3: How often do you have si x or more drinks on one occasion? Never 03/08/2025 Personal Safety Answer Date Recorded Have you ever been in or are you currently in a harmful physical or emotional relationship or is someone making you feel afraid or unsafe? 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 Not on file Not on file Not on file Obstetrics History Para Term AB IAB SAB Ectopic Multiple Livin g Live Births 1 0 Date Outcome GA Total Labor Labor/2nd/3rd Weight Sex Type Anes PTL Almaz A1 A5 Name Clin Last Filed Vital Signs Vital Sign Reading Time Taken Comments Blood Pressure 151/70 03/09/2025 8:20 AM CDT Pulse 53 03/09/2025 8:20 AM CDT Temperature 36.6 C (97.9 F) 03/09/2025 8:20 AM CDT Respiratory Rate 18 03/09/2025 8:20 AM CDT Oxygen Saturation 100% 03/09/2025 8:20 AM CDT Inhaled Oxygen Concentration - - Weight 65.9 kg (145 lb 3.2 oz) 03/08/2025 9:11 A M CDT Height 165.1 cm (5' 5) 02/23/2025 3:32 PM CDT Body Mass Index 24.16 02/23/2025 3:32 PM CDT Plan of Treatment Health Maintenance Due Date Last Done Comments Colon Cancer Screening-Colonoscopy 1950 Hepatitis C Screening 1950 Osteoporosis Screening-Bone Density Scan 1950 DTaP/Tdap/Td Vaccine (1 - Tdap) 1960 Hepatitis B Screening 11/30/1967 Zoster Vaccine (1 of 2) 11/30/1999 Well Visit 65+ 2014 Influenza Vaccine (#1) 2025 0, 01/20/2020, 02/26/2019 Depression Screening 04/19/2025 04/19/2024 Fall Risk Assessment 03/09/2026 03/09/2025 Pneumococcal vaccine 65+ Completed 04/15/2019, 03/14 Breast Cancer Screening-Mammogram Discontinued 02/04/2025, 01/17/2023, 01/10/2022, Additional history exists Medical Devices Implanted Type Area Golf Teacher Device Identifier Shelf Expiration Date Model / Serial / Lot [employer] Implant Hsc Gel Breast Smooth Round Moderate 365cc [id number] - [id number] Implanted:Qty: 1 on 03/08/2025 at [facility] Left: Breast [employer] 07/05/2029 [id number] / [id number] / Explanted Type Area Golf Teacher Device Identifier Shelf Expiration Date Model / Serial / Lot Breast Implant Explanted:Qty: 1 on 03/08/2025 by Vicenta Clement MD at [facility] Left: Breast [employer] [id number] / / [id number] Procedures Procedure Name Priority Date/Time Associated Diagnosis Comments SURGICAL PATHOLOGY Routine 03/08/2025 9: 36 AM CDT Hx of breast reconstruction Rupture of implant of left breast, initial encounter OR AN PROCEDURE PLACEHOLDER Routine 03/08/2025 9:27 AM CDT OR AN ELECTIVE ENDOTRACHEAL AIRWAY Routine 03/08/2025 9:27 AM CDT REMOVAL IMPLANT BREAST 03/08/2025 9:14 AM CDT Hx of breast reconstruction Rupture of implant of left breast, initial encounter Special Needs IMPLANTS, ADM CAPSULECTOMY BREAST 03/08/2025 9 :14 AM CDT Hx of breast reconstruction Rupture of implant of left breast, initial encounter Special Needs IMPLANTS, ADM PLACEMENT BREAST IMPLANT 03/08/2025 9:14 AM CDT Hx of breast reconstruction Rupture of implant of left breast, initial encounter Special Needs IMPLANTS, ADM POCT COTININE Routine 03/08/2025 SCREENING MAMMOGRAM RIGHT W FEDERICO UNILATERAL ONLY Schedule Routine, Read Routine (OP Routine) 02/04/2025 11:25 AM CDT Screening mammogram, encounter for from Last 3 Months Results * Surgical pathology (03/08/2025 9:36 AM CDT) Tissue (Breast, capsular tissue) 03/08/2025 9:36 AM CDT Narrative PATHOLOGY [facility] - 03/11/2025 10:33 AM CDT [facility] results best viewed via link to PDF [facility] [place] [address] [place] [address] Note to Patients: This report may contain a detailed description of human tissue sent by a health care provider to the laboratory for pathologic evaluation. The content of this report is essential for diagnosis and may provide important critical findings. This information may be unfamiliar to patients to review without a medical professional present. It is advised that the patient review this report in the presence of a health care provider who can answer questions and explain the details. SURGICAL PATHOLOGY REPORT FINAL Patient Name: SULTANA SWANSON Gender: F : 1950 (Age: 74) Address: [address] [place], [place] [address] Hospital #: [id number] Taken:03/08/2025 Received:03/08/2025 Reported: 03/11/2025 Patient Type: [facility] EP [facility] Client [facility] Service: PLS ([facility]) Location: Physician(s): Vicenta Clement M.D. Diagnosis: Breast, left, capsulectomy - Unremarkable fibrous capsule - No evidence of atypia or malignancy fece/03/11/2025 08:41 By this signature, I attest that the above diagnosis is based upon my personal examination of the slides(and/or other material indicated in the diagnosis). Cydney Rosales M.D. Report Electronically Reviewed and Signed Out By Cydney Rosales M.D. 03/11/2025 10:33:47 Fox Hernandez M.D. History: The patient is a 74-year-old woman with a history of breast reconstruction and ruptured implant. Operative procedure: Placement breast implant, capsulectomy, removal implant. Specimen(s) Received: A: Left breast capsule Gross Description: Received in formalin, labeled with the patient's identifiers and left breast capsule are two pieces of marroquin-pink membranous soft tissue measuring 8.4 x 5.2 x 0.2 cm in aggregate. The specimen is sectioned showing unremarkable marroquin-pink cut surface. Labeled A1. Jar 1. larisa/03/08/2025 14:11 PA(s): JOSE LUIS Umanzor By this signature, I attest that the above diagnosis is based upon my personal examination of the slides(and/or other material). Addenda/Procedures Microscopic slide review and interpretation for this case was performed at [facility], Department of Surgical Pathology, [address] [facility] [place], [place] [id number], [place] [address] CLIA # [id number] The performance characteristics of some immunohistochemical stains, fluorescence in-situ hybridization tests and immunophenotyping by flow cytometry cited in this report (if any) were determined by the Surgical Pathology and Flow Cytometry Departments at [facility] as part of an ongoing manager quality improvement program and in compliance with federally mandated regulations drawn from the Clinical Laboratory Improvement Act of 1988 (CLIA '88). Some of these tests rely on the use of analyte specific reagents and are subject to specific labeling requirements by the US Food and Drug Administration. Such diagnostic tests may only be performed in a facility that is certified by the Department of Health and Human Services as a high complexity laboratory under CLIA '88. The FDA has determined that such clearance or approval is not necessary. This test is used for clinical purposes. It should not be regarded as investigational or for research. Nevertheless, federal rules concerning the medical use of analyte specific reagents require that the following disclaimer be attached to the report: This test was developed and its performance characteristics determined by the Surgical Pathology and Flow Cytometry Departments of [facility]. It has not been cleared or approved by the U. S. Food and Drug Administration. IMAGES AND SCANNED DOCUMENTS, IF INCLUDED, ONLY VIEWABLE IN PDF VERSION OF REPORT us Vicenta Clement MD LAB PATHOLOGY ORDERABLES nal Result PATHOLOGY [facility] [phone] * OR AN ELECTIVE ENDOTRACHEAL AIRWAY, OR AN PROCEDURE PLACEHOLDER (03/08/2025 9:27 AM CDT) Narrative Emily Joseph CRNA - 03/08/2025 9:27 AM CDT Emily Joseph CRNA 03/08/2025 9:27 AM Airway Patient location: OR Urgency: elective Date/time: 03/08/2025 9:22 AM Indications for airway management: anesthesia Difficult airway: no Airway prep: Preoxygenated: yes Patient position: sniffing Spontaneous ventilation during airway: absent Sedation level during airway: GA Final airway details: Final airway type: endotracheal airway Tube type: ETT ETT size: 6.5 mm Cuffed: yes Technique used for successful ETT placement: direct laryngoscopy Devices/Methods used in placement: stylet Insertion site: oral Blade type: Giselle Blade size: 4 Cormack-Lehane (direct): grade I - full view of glottis Cuff volume: 10 mL Cuff inflated with: air ETT to teeth: 21 cm Placement verified by: auscultation and CO2 detection Airway secured with: silk tape Number of attempts: 1 Filiberto Chanel MD ANESTHESIA ORDERABLES Marjan l Result * POCT cotinine (03/08/2025) Cotinine, POC Negative Lot Number [id number] QC Negative Control Acceptable QC Positive Control Acceptable Urine 03/08/2025 Historical Provider POINT OF CARE TEST ORDERA BLES Final Result * Screening Mammogram Right W Federico Unilateral [...] mass, calcification, or architectural distortion. Tete Allan NP IMG MAMMO PROCEDURES Final Result from Last 3 Months Insurance COUNT INCLUDES THE [facility] MEDICARE COUNT INCLUDES THE [facility] MEDICARE Advance Directives For more information, please contact: [phone] Documents on File Type Date Recorded Patient Corrosion Control Engineer Expl anation ADVANCE DIRECTIVE 09/16/2017 5:37 AM ADVANCE DIRECTIVE 09/16/2017 Advance Di rective Checklist * Full Code (Latest Code Status on File) Date Activated Date Inactivated Comments 03/08/2025 11:31 AM 03/09/2025 2:03 PM Care Teams Automobile Tire Builder Relationship Specialty Start Date End Date No, Physician PCP - General 02/23/25
--- OUTSIDE RECORDS SUMMARY | 2025-05-02 14:29 | XMS_ITS | Clinical Summary ---
Author Organization [facility] Address [address] [place] [id number] Phone Care Team Providers Care Sawsmith Name Role Phone Magdalena Ruiz MD Primary Care Provider [phone] Allergies Active Allergy Reactions Criticality Noted Date [...] medication. She is considering a move to [place] and is also concerned about cost and [...] medication. She is considering a move to [place] and is also concerned about cost and [...] Comments Blood Pressure 142/86 04/22/2022 1:46 PM ELECTRICAL INSTALLATION INSPECTOR Pulse - - Temperature 36.6 C (97.9 F) 04/22/2022 1:46 PM ELECTRICAL INSTALLATION INSPECTOR Respiratory Rate 18 04/22/2022 1:46 PM ELECTRICAL INSTALLATION INSPECTOR Oxygen Saturation - - Inhaled Oxygen Concentration - - Weight 62.1 kg (137 lb) 04/22/2022 1:46 PM ELECTRICAL INSTALLATION INSPECTOR Height 167.6 cm (5' 6) 04/22/2022 1:46 PM ELECTRICAL INSTALLATION INSPECTOR Body Mass Index 22.11 04/22/2022 1:46 PM ELECTRICAL INSTALLATION INSPECTOR Plan of Treatment Health Maintenance Due Date Last Done Comments Pneumococcal PPSV23/PCV13 65 + Years / Low and Medium Risk (2 of 3 - PCV20 or PCV21) 04/10/2019 04/10/2018 Influenza Vaccine (#1) 2025 02/26/2019 Insurance [place] [address] Care Teams Sawsmith Relationship Specialty Start Date End Date Magdalena Ruiz MD [address] [place] [address] PCP - General Internal Medicine 04/12/22
--- OUTSIDE RECORDS SUMMARY | 2025-05-02 14:29 | XMS_ITS | Encounter Summary ---
Author Organization [facility] Address [address] [place] [address] Phone Care Team Providers Care Type Rolling Machine Operator Name Role Phone Magdalena Ruiz MD Primary Care Provider [phone] Peggy Covington MD Unavailable Emilia Jimenes MD Unavailable Vicenta Clement MD Unavailable Mele Arriaga MD Unavailable Magdalena Ruiz MD Primary Care Provider [phone] No, Physician Primary Care Provider [phone] Encounter Details Date Type Department Care Team (Late st Contact Info) Description 10/09/2017 Orders Only [facility] ProviderMarika MD [address] [place] [address] Social History Tobacco Use Types Packs/Day Years Used Date Smoking Tobacco: Never Comments Unknown Sex and Gender Information Value Date Recorded Sex Assigned at Not on file Legal Sex Female 4:40 AM CHIEF OF SURGERY Gender Identity Female 05/16/2021 10:44 AM CHIEF OF SURGERY Sexual Orientation Straight 12/02/2019 12 :24 PM [...] on filedocumented in this encounter Care Teams Type Rolling Machine Operator Relationship Specialty Start Date End Date Magdalena Ruiz MD PCP - General 07/31/17 07/23/22 Magdalena Ruiz MD [address] [place] [address] PCP - General Family Medicine 07/24/22 02/22/25 No, Physician PCP - General 02/23/25 Peggy Covington MD Medical Oncologist/Ceramic Restorer Medical Oncology 11/24/17 06/06/20 Emilia Jimenes MD Surgeon Breast Surgery 11/24/17 03/21/21 Vicenta Clement MD [address] [place] [address] Referring Physician Plastic Surgery 11/24/17 03/21/21 Mele Arriaga MD [address] [place] [address] Consulting Physician Medical Oncology 06/07/20 1 documented as of this encounter
--- OUTSIDE RECORDS SUMMARY | 2025-05-02 14:29 | XMS_ITS | Encounter Summary ---
Author Organization [facility] Address [address] [place] [address] Care Team Providers Care Diving Judge Name Role Phone Magdalena Ruiz MD Primary Care Provider Peggy Covington MD Unavailable Emilia Jimenes MD Unavailable Vicenta Clement MD Unavailable [phone] Mele Arriaga MD Unavailable Magdalena Ruiz MD Primary Care Provider No, Physician Primary Care Provider Encounter Details Date Type Department Care Team (Late st Contact Info) Description 08/11/2018 Telephone [facility] ([facility]) [facility] [place], [place] [id number] Tre Covington MD [address] [address] Social History Tobacco Use Types Packs/Day Years Used Date Smoking Tobacco: Never Smokeless Tobacco: Never Alcohol Use Standard Drinks/Week Comments No 0 (1 standard drink = 0.6 oz pur e alcohol) Comments Unknown Sex and Gender Information Value Date Recorded Sex Assigned at Not on file Legal Sex Female 4:40 AM BEET WORKER Gender Identity Female 05/16/2021 10:44 AM BEET WORKER Sexual Orientation Straight 12/02/2019 12 :24 PM CDT documented as of this encounter Plan of Treatment Not on file documented as of this encounter Visit Diagnoses Not on filedocumented in this encounter Care Teams Diving Judge Relationship Specialty Start Date End Date Magdalena Ruiz MD PCP - General 07/31/17 07/23/22 Magdalena Ruiz MD [address] [place] [address] PCP - General Family Medicine 07/24/22 02/22/25 No, Physician PCP - General 02/23/25 Peggy Covington MD Medical Oncologist/Boner Meat Medical Oncology 11/24/17 06/06/20 Emilia Jimenes MD Surgeon Breast Surgery 11/24/17 03/21/21 Vicenta Clement MD [address] [place] [address] Referring Physician Plastic Surgery 11/24/17 03/21/21 Mele Arriaga MD [address] [place] [address] Consulting Physician Medical Oncology 06/07/20 1 documented as of this encounter
--- OUTSIDE RECORDS SUMMARY | 2025-05-02 14:29 | XMS_ITS | Encounter Summary ---
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
== END 2025-05-02 12:56 | disposition home or self-care (01) ==
LOC: ANHFOHIMG 12:56
PROVIDERS: Visit Provider Nurse Practitioner
DX: Z78.0 Asymptomatic menopausal state (principal); Z13.820 Encounter for screening for osteoporosis
CPT/HCPCS: 77080

== ENCOUNTER 2025-05-02 15:11 | Outpatient (CLI) | payer MEDICARE, SELFPAY ==
--- OUTSIDE RECORDS SUMMARY | 2025-05-02 08:00 | XMS_ITS ---
Author Organization [facility] Address [address] [place] [address] Care Team Providers Care Toucher Up Name Role Phone Magdalena Ruiz MD Primary Care Provider UnavailSharonda Barajas Unavailable [phone] Sharla Anni Unavailable [phone] Allergies Allergen (clinical drug ingredient) Drug/Non Drug Allergy documented on EMR Reaction Allergy Type Onset Date Status ampicillin Ampicillin Unknown Drug Allergy 07/22/2023 Acti ve levofloxacin levoFLOXacin Unknown Drug Allergy 07/22/2023 Active levothyroxine Levothyroxine Unknown Drug Allergy Active REASON FOR VISIT Sharonda's Pt, Last seen 04/22/2024 Medications Medication SIG (Take, Route, Frequency, Duration) Notes Start Date End Date Status Phenazopyridine HCl 100 MG Tablet Oral 09/26/2023 Unknown aMILoride HCl 5 mg Tablet Oral 09/26/2023 Unknown Simvastatin 20 MG Tablet Oral 09/26/2023 Unknown QUEtiapine Fumarate 25 MG Tablet Oral 09/26/2023 Not-Taking Benzonatate 100 MG Capsule Oral 09/26/2023 Unknown QUEtiapine Fumarate 100 MG Tablet 3 tablets at bedtime Orally Once a day; Duration: 30 days 05/02/2025 Active QUEtiapine Fumarate 200 MG Tablet 1 tablet Oral Once a day at bedtime; Duration: 90 days Not-Taking SOLIFENACIN 10 MG TABLET *Reorder from [employer] for eRx and Interaction Alerts* 09/26/2023 Unknown QUEtiapine Fumarate 100 MG Tablet TAKE 2 TABLETS BY MOUTH EVERY DAY AT BEDTIME; Duration: 90 Active Omeprazole 20 MG Capsule Delayed Release Oral 09/26/2023 Unknown Ingrezza 40 mg Capsule Oral 09/26/2023 Unknown Fluticasone Propionate Diskus 50 MCG/ACT Aerosol Powder Breath Activated Inhalation *Reorder from [employer] for eRx and Interaction Alerts* 09/26/2023 Unknown Sparks 3 *Pick strength-form from [employer] for eRX* 09/26/2023 Unknown Levothyroxine Sodium 75 MCG Tablet Oral 09/26/2023 Unknown Social History Sex Assigned At : Social History Observation Description Sex Assigned At Female Social History Additional Details Category Social Info Options Details Migrated Social History Migrated Social History Alcohol Intake: None 08/28/2022,Tobacco Years: Never smoker 08/28/2022 Section Notes: Occupation: Retired professor, taught Tongan for 18 years Financial status: Significant financial loss due to scam, currently on a downturn Living situation: Lives alone Problems Problem Type SNOMED Code ICD Code Onset Dates Problem Status W/U Status Risk Notes Problem Bipolar affective disorder, currently manic, mild (120267317) Bipolar 1 disorder, manic, mild (F31.11) Active confirmed Vital Signs Blood pressure systolic 130 mm Hg 05/02/20 25 Blood pressure diastolic 89 mm Hg 025 Heart Rate 85 /min 05/02/2025 Height 66.00 in 05/02/2025 Weight 146 lbs 05/02/2025 BMI 23.56 kg/m2 05/02/2025 Height-cm 167.64 cm 05/02/2025 Weight-kg 66.23 kg 05/02/2025 Encounters Encounter Location Date Provider Diagnosis [facility] [address] [place] [address] [address] [facility] [address] [place] [address] 05/02/2025 Anni Magdaleno Bipolar 1 disorder, manic, mild F31.11 Assessments Encounter Date Diagnosis (ICD Code) Assessment Notes Treatment Notes Treatment Clinical Notes Section Notes 05/02/2025 Bipolar 1 disorder, manic, mild (ICD-10 - F31.11) Recent increase in manic symptoms including rapid speech and difficulty staying on topic. History of bipolar disorder type I, previously managed with lithium and currently on quetiapine. Patient prefers to increase current medication before adding new mood stabilizers. No thoughts of self-harm or harm to others reported. Maintains restful sleep and good appetite. - Increase quetiapine to 300 mg at bedtime. - Order 30-day supply of quetiapine, three 100 mg tablets at bedtime. - Discussed options for additional mood stabilizers (Depakote, Lamotrigine) for future consideration. -Pt reluctant at this time to try mood stablizers, pt requests to perform her own research on the medication before considering any medication changes 05/02/2025 Other Past meds: [place] Plan Of Treatment Medication Medication Name Sig Start Date Stop Date Notes QUEtiapine Fumarate 100 MG Tablet 3 tablets at bedtime Orally Once a day; Duration: 30 days 05/02/2025 Treatment Notes Assessment Notes Bipolar 1 disorder, manic, mild Recent increase in manic symptoms including rapid speech and difficulty staying on topic. History of bipolar disorder type I, previously managed with lithium and currently on quetiapine. Patient prefers to increase current medication before adding new mood stabilizers. No thoughts of self-harm or harm to others reported. Maintains restful sleep and good appetite. - Increase quetiapine to 300 mg at bedtime. - Order 30-day supply of quetiapine, three 100 mg tablets at bedtime. - Discussed options for additional mood stabilizers (Depakote, Lamotrigine) for future consideration. -Pt reluctant at this time to try mood stablizers, pt requests to perform her own research on the medication before considering any medication changes Other Past meds: [place] Next Appt Details Follow Up: 2 Weeks, Reason: Follow-up for mood and medication management Provider Name:Anni Magdaleno, 05/16/2025 11:30:00 AM, [address] [address], [place], [address], History and Physical Notes * HPI (History of Present Illness) Category Sub-Category Detail Notes Category Not es History of Presenting Problem Depression screening done Sultana Swanson, a 74-year-old female, presented for a chronic condition follow-up focused on medication management and mood stabilization. She described a long-standing history of bipolar disorder type I, with recent weeks marked by increased manic symptoms. She reported talking a lot, difficulty staying on topic, and rapid thoughts, which she recognized as signs of jaciel. Despite these symptoms, she maintained restful sleep of 7-8 hours per night and a good appetite. She expressed concern about her medication supply, specifically the need for a refill of quetiapine, and was apprehensive about possible sedation with an increased dose, as she values her ability to engage in creative writing and hopes to publish a book. She prefers to increase her current medication before considering additional mood stabilizers, citing her investigative approach to treatment options. She denied any thoughts of self-harm or harm to others. Her psychiatric history includes prior lithium use, which was discontinued due to depression and movement disorder, and a hospitalization for a manic episode in 1988. She currently takes quetiapine in split doses for flexibility and sees a therapist occasionally, though financial constraints limit regular visits. 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 In addition to her psychiatric concerns, Sultana discussed her history of life-threatening hyponatremia, for which she was hospitalized three years ago. She continues to see a interventional nurse for sodium management and has recently undergone a bone density test with pending blood work. She occasionally does not follow fluid restriction recommendations but monitors her hydration status by observing urine color. Despite these medical issues, she remains active and strives to manage her health independently. Elements of this documentation were generated using an AI-assisted tool distributor or drafting tool. The clinician has personally reviewed, amended when appropriate, and attests that the final content accurately reflects the patient encounter, clinical findings, medical decision-making, and plan of care. The clinician accepts responsibility for the accuracy and completeness of the record. Depression screening PHQ-9 Little interest or pleasure in doing things: Not at all Feeling down, depressed, or hopeless: No t at all Trouble falling or staying asleep, or sl eeping too much: Not at all Feeling tired or having little energy: N ot at all Poor appetite or overeating: Not at all Feeling bad about yourself o r that you are a failure, or have let yourself or your family down: Not at all Trouble concentrating on thi ngs, such as reading the newspaper or watching television: Not at all Moving or speaking so slowly that other people could have noticed; or the opposite, being so fidgety or restless that you have been moving around a lot more than usual: Not at all Thoughts that you would be b ramon off or of hurting yourself in some way: Not at all Total Score: 0 Intervention Depression Screening Findings: N egative Follow-Up for Depression: Psychiatric fo llow-up Suicide Risk Assessment Performed: 05/02 Depression Screening ED-7 (2018 Edition) Feelin g nervous, anxious, or on edge: Several days Not being able to stop or control worryi ng: Not at all Worrying too much about different things : Several days Trouble relaxing: Not at all Being so restless that it is hard to sit still: Not at all Becoming easily annoyed or irritable: No t at all Feeling afraid as if something awful lorie ht happen: Not at all Total ED-7 Score: 2 Interpretation of Total: (0 to 4) No Anx iety Examination Category Sub-Category Detail Notes Category Not es Psychiatry Appearance: Well-groomed, appropriately dressed for age and weather. No unusual features or abnormalities noted. Behavior: Cooperative but intrusive. Increased psychomotor activity Maintains appropriate eye contact. Speech: Pressured, rapid, and difficult to interrupt. Spontaneous and coherent. Mood: Patient reports that she also believes that she is manic and reports that she would rather be manic than depressed Affect: Appropriate to content and context. Full range, stable, congruent with stated mood. Thought Process: Linear, logical, goal-directed. No loosening of associations, tangentiality, or flight of ideas. Thought Content: Grandiose ideation present. No overt persecutory delusions. Denies suicidal ideation (SI) and homicidal ideation (HI). Perceptions: No hallucinations (auditory, visual, or other). No perceptual disturbances. Cognition: Alert and oriented 4 (person, place, time, situation). Attention and concentration intact. Memory (recent and remote) intact. Insight: Impaired, evidenced by impulsive behavior and poor decision-making Judgement: Intact (able to make sound decisions, understands consequences). Reliability: Questionable due to distractibility and limited insight. Progress Notes * SULTANA SWANSONDOB:[birth year] (74 yo F)Acc No.[id number]:05/02/2025 Patient: SULTANA BHAGAT Provider: Kendall Magdaleno :1950 A ge:74 Y S ex:Female Date:05/02/2025 Address:[place], [id number] Pcp:Magdalena Ruiz MD Subjective: * Chief Complaints: * Norma davis's Pt, Last seen 04/22/2024 * HPI: D epression screening: PHQ-9 L ittle interest or pleasure in doing things?Not at all F eeling down, depressed, or hopeless N ot at all T rouble falling or staying asleep, or sleeping too much N ot at all F eeling tired or having little energy N ot at all P oor appetite or overeating N ot at all F eeling bad about yourself or that you are a failure, or have let yourself or your family down N ot at all T rouble concentrating on things, such as reading the newspaper or watching television N ot at all M oving or speaking so slowly that other people could have noticed; or the opposite, being so fidgety or restless that you have been moving around a lot more than usual N ot at all T houghts that you would be better off or of hurting yourself in some way N ot at all T otal Score 0 Intervention D epression Screening Findings N egative F ollow-Up for Depression P sychiatric follow-up S uicide Risk Assessment Performed 1 07/03/24 H istory of Presenting Problem: Depression screening done Sultana Swanson, a 74-year-old female, presented for a chronic condition follow- up focused on medication management and mood stabilization. She described a long-standing history of bipolar disorder type I, with recent weeks marked by increased manic symptoms. She reported talking a lot, difficulty staying on topic, and rapid thoughts, which she recognized as signs of jaciel. Despite these symptoms, she maintained restful sleep of 7-8 hours per night and a good appetite. She expressed concern about her medication supply, specifically the need for a refill of quetiapine, and was apprehensive about possible sedation with an increased dose, as she values her ability to engage in creative writing and hopes to publish a book. She prefers to increase her current medication before considering additional mood stabilizers, citing her investigative approach to treatment options. She denied any thoughts of self-harm or harm to others. Her psychiatric history includes prior lithium use, which was discontinued due to depression and movement disorder, and a hospitalization for a manic episode in 1988. She currently takes quetiapine in split doses for flexibility and sees a therapist occasionally, though financial constraints limit regular visits. 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 In addition to her psychiatric concerns, Sultana discussed her history of life-threatening hyponatremia, for which she was hospitalized three years ago. She continues to see a interventional nurse for sodium management and has recently undergone a bone density test with pending blood work. She occasionally does not follow fluid restriction recommendations but monitors her hydration status by observing urine color. Despite these medical issues, she remains active and strives to manage her health independently. Elements of this documentation were generated using an AI-assisted tool distributor or drafting tool. The clinician has personally reviewed, amended when appropriate, and attests that the final content accurately reflects the patient encounter, clinical findings, medical decision-making, and plan of care. The clinician accepts responsibility for the accuracy and completeness of the record. D epression Screening: ED-7 (2018 Edition) F eeling nervous, anxious, or on edge S everal days N ot being able to stop or control worrying?Not at all W orrying too much about different things S everal days T rouble relaxing N ot at all B eing so restless that it is hard to sit still N ot at all B ecoming easily annoyed or irritable N ot at all F eeling afraid as if something awful might happen N ot at all T otal ED-7 Score 2 I nterpretation of Total ( 0 to 4) No Anxiety * ROS: C onstitutional: denies fever, chills, weight changes HEENT: denies vision changes, hearing issues, congestion, sore throat Cardiovascular:denies chest pain, palpitations, edema Respiratory:denies cough, shortness of breath, wheezing GI:denies abdominal pain, nausea, vomiting, diarrhea, constipation : denies dysuria, frequency, urgency, hematuria Musculoskeletal:denies joint pain, muscle aches, stiffness Neurological:denies dizziness, weakness, numbness, tingling Skin:denies rash, itching, lesions Endocrine: d enies heat/cold intolerance, polyuria, polydipsia Hematologic:denies bruising or bleeding Allergic/Immunologic: denies allergies or recurrent infections. * Medical History: Problems: Bipolar affective disorder, current episode depression Hyponatremia High cholesterol CKD Bipolar disorder type i Hyponatremia, history of life-threatening episode Medical History Verified * Surgical History: Reconstructive surgery 09/16/2017 Breast surgery ([id number]) 09/16/2017 there was a rupture in the implant 03/08/25 Reconstructive surgery Breast surgery () there was a rupture in the implant Mastectomy, 2018 Plastic surgery for implant replacement, march 08, 202502/2025 Surgical History verified. * Hospitalization/Major Diagno stic Procedure: oupatient surgery for the ruptured implant 03/08/25 Manic episode, hospitalized for several days, 1988 Life-threatening hyponatremia, hospitalized, 2021 Hospitalization Verified. * Family History: F ather: . M other: . F amily History Verified.. Parents : Brother : lives in [place]. * Social History: M igrated Social History: M igrated Social History: Alcohol Intake: None 08/28/2022,Tobacco Years: Never smoker 08/28/2022. S ocial History Verified. O ccupation: Retired professor, taught Tongan for 18 years Financial status: Significant financial loss due to scam, currently on a downturn Living situation: Lives alone. * Medications: T akingQUEtiapine Fumarate 100 MG Tablet TAKE 2 TABLETS BY MOUTH EVERY DAY AT BEDTIME Taking QUEtiapine Fumarate 100 MG Tablet TAKE 2 TABLETS BY MOUTH EVERY DAY AT BEDTIME Not-TakingQUEtiapine Fumarate 200 MG Tablet 1 tablet Oral Once a day at bedtime QUEtiapine Fumarate 25 MG Tablet Oral Not-Taking QUEtiapine Fumarate 200 MG Tablet 1 tablet Oral Once a day at bedtime Not-Taking QUEtiapine Fumarate 25 MG Tablet Oral UnknownSimvastatin 20 MG Tablet Oral aMILoride HCl 5 mg Tablet Oral Phenazopyridine HCl 100 MG Tablet Oral Benzonatate 100 MG Capsule Oral Fluticasone Propionate Diskus 50 MCG/ACT Aerosol Powder Breath Activated Inhalation , Notes to Pharmacist: *Reorder from [employer] for eRx and Interaction Alerts*Levothyroxine Sodium 75 MCG Tablet Oral Sparks 3 , Notes to Pharmacist: *Pick strength-form from [employer] for eRX*Ingrezza 40 mg Capsule Oral SOLIFENACIN 10 MG TABLET , Notes to Pharmacist: *Reorder from [facility] for eRx and Interaction Alerts*Omeprazole 20 MG Capsule Delayed Release Oral Medication List reviewed and reconciled with the patientUnknown Simvastatin 20 MG Tablet Oral Unknown aMILoride HCl 5 mg Tablet Oral Unknown Phenazopyridine HCl 100 MG Tablet Oral Unknown Benzonatate 100 MG Capsule Oral Unknown Fluticasone Propionate Diskus 50 MCG/ACT Aerosol Powder Breath Activated Inhalation , Notes to Pharmacist: *Reorder from [facility] for eRx and Interaction Alerts*Unknown Levothyroxine Sodium 75 MCG Tablet Oral Unknown Sparks 3 , Notes to Pharmacist: *Pick strength-form from [facility] for eRX*Unknown Ingrezza 40 mg Capsule Oral Unknown SOLIFENACIN 10 MG TABLET , Notes to Pharmacist: *[facility]*Unknown Omeprazole 20 MG Capsule Delayed Release Oral Medication List reviewed and reconciled with the patient * Allergies: A mpicillin: Allergy - Onset Date 07/22/2023levoFLOXacin: Allergy - Onset Date 07/22/2023Levothyroxine: Allergy - Onset Date 07/22/2023yesAllergies Verified. Objective: * Vitals: B P:130/89mm Hg, HR:85/min, Wt:146lbs, Wt-k.23 kg, Ht: 66.00 in, Ht-cm: 167.64 cm, BMI:23.56Index, Body Surface Area: 1.75. * Examination: P sychiatry: A ppearance: Well-groomed, appropriately dressed for age and weather. No unusual features or abnormalities noted. Behavior: Cooperative but intrusive. Increased psychomotor activity Maintains appropriate eye contact. Speech: Pressured, rapid, and difficult to interrupt. Spontaneous and coherent. Mood: Patient reports that she also believes that she is manic and reports that she would rather be manic than depressed Affect: Appropriate to content and context. Full range, stable, congruent with stated mood. Thought Process: Linear, logical, goal-directed. No loosening of associations, tangentiality, or flight of ideas. Thought Content: Grandiose ideation present. No overt persecutory delusions. Denies suicidal ideation (SI) and homicidal ideation (HI). Perceptions: No hallucinations (auditory, visual, or other). No perceptual disturbances. Cognition: Alert and oriented 4 (person, place, time, situation). Attention and concentration intact. Memory (recent and remote) intact. Insight: Impaired, evidenced by impulsive behavior and poor decision-making Judgement: Intact (able to make sound decisions, understands consequences). Reliability: Questionable due to distractibility and limited insight. Assessment: * Assessment: 1. B ipolar 1 disorder, manic, mild - F31.11 (Primary) Plan: * Treatment: 2. O thers Notes:Past meds: [place] * Procedure Codes: 9 6127 BEHAV ASSMT W/SCORE & DOCD/STAND [id number] TOBACCO [id number] PSYCHIATRIC DIAGNOSTIC EVAL W/MEDICAL SERVICES * Preventive Medicine: Screenings: D epression screening Have you had a recent depression screening? Y es P atient Understanding & Engagement: Patient demonstrated good understanding of the information discussed. Time was taken to clarify questions and ensure comprehension. Patient expressed interest in participating in treatment plan. Patient encouraged to follow up regularly and engage in therapeutic recommendations. Will continue to monitor progress and provide ongoing support. Patient given opportunity to contact provider if issues arise between sessions. * Follow Up: 2 Weeks (Reason: Follow-up for mood and medication management) Billing Information: * Procedure Codes: 40516 BEHAV ASSMT W/SCORE & DOCD/STAND INSTRUMENT. 1036F TOBACCO NON-USER. 99601 PSYCHIATRIC DIAGNOSTIC EVAL W/MEDICAL SERVICES. * IT COLLECTIONS SPECIALIST Sign off status: Completed true * Provider: Kendall Magdaleno Date: 07/03/2024 Generated for Troy Andre/Ynes on: 07/03/2024 04:49 PM CREDIT COLLECTIONS SPECIALIST
[2025-05-02 15:52] LABS: Albumin Level 4.4 g/dL (3.5-5.1); Anion Gap 9 mmol/L (4-12); Blood Urea Nitrogen 33 mg/dL (7-17); Calcium 9.1 mg/dL (8.4-10.2); Carbon Dioxide 24 mmol/L (22-30); Chloride 106 mmol/L (98-107); Estimated Glomerular Filt Rate > 60; Glucose 92 mg/dL (65-110); Potassium 5.1 mmol/L (3.4-5.0); Sodium 139 mmol/L (137-145)
--- OUTSIDE RECORDS SUMMARY | 2025-05-02 16:49 | XMS_ITS | Encounter Summary ---
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
--- OUTSIDE RECORDS SUMMARY | 2025-05-02 16:49 | XMS_ITS | Encounter Summary ---
Author Organization [facility] Address [address] [place] [address] Phone Care Team Providers Care Optometrist Owner Name Role Phone Magdalena Ruiz MD Primary Care Provider [phone] Peggy Covington MD Unavailable Emilia Jimenes MD Unavailable [phone] Vicenta Clement MD Unavailable Mele Arriaga MD Unavailable Magdalena Ruiz MD Primary Care Provider [phone] No, Physician Primary Care Provider [phone] Encounter Details Date Type Department Care Team (Late st Contact Info) Description 10/09/2017 Orders Only [facility] ProviderMarika MD [address] [place] [address] Social History Tobacco Use Types Packs/Day Years Used Date Smoking Tobacco: Never Comments Unknown Sex and Gender Information Value Date Recorded Sex Assigned at Not on file Legal Sex Female 4:40 AM CADD OPERATOR Gender Identity Female 05/16/2021 10:44 AM CADD OPERATOR Sexual Orientation Straight 12/02/2019 12 :24 [...] on filedocumented in this encounter Care Teams Optometrist Owner Relationship Specialty Start Date End Date Magdalena Ruiz MD PCP - General 07/31/17 07/23/22 Magdalena Ruiz MD [address] [place] [address] PCP - General Family Medicine 07/24/22 02/22/25 No, Physician PCP - General 02/23/25 Peggy Covington MD Medical Oncologist/Cardboard Cutter Medical Oncology 11/24/17 06/06/20 Emilia Jimenes MD Surgeon Breast Surgery 11/24/17 03/21/21 Vicenta Clement MD [address] [place] [address] Referring Physician Plastic Surgery 11/24/17 03/21/21 Mele Arriaga MD [address] [place] [address] Consulting Physician Medical Oncology 06/07/20 1 documented as of this encounter
--- OUTSIDE RECORDS SUMMARY | 2025-05-02 16:49 | XMS_ITS | Clinical Summary ---
Author Organization [facility] Address [address] [place] [address] Care Team Providers Care Spray Gunner Name Role Phone No, Physician Primary Care Provider [phone] Allergies Active Allergy Reactions Criticality Noted Date [...] after or more after levothyroxine Active omega 8-sin-kwi-fish oil (Fish OiL) 1,000 mg (120 mg-180 mg) capsuleIndications :hypertriglyceride kar Take 1 capsule (1,000 mg total) by [...] test Going on 5 week trip to [facility] Bilateral impacted cerumen 02/15/2022 Assessment & [...] medication. She is considering a move to [place] and is also concerned about cost and [...] 12/10/2019 Assessment & Plan (04/22/2024 1:09 PM CATTLE BROKER): Ms. Sultana Swanson is a 73 y.o. [...] encounter. Assessment & Plan (04/03/2021 11:26 AM CATTLE BROKER): Ms. Sultana Swanson is a 70 y.o. [...] 09/27/2017:Stage IB(cT2, cN0(sn), cM0, G1, ER: Positive, DE: Positive, HER2: Negative, Oncotype DX score: 12) - Signed by Peggy Covington MD on 11/27/2017 S/P breast reconstruction, left 10/14/2017 ER+ (estrogen receptor positive status) 09/20/19 18 Neoplasm of unspecified behavior of unspecified site 09/19/2017 Infiltrating ductal carcinoma of breast 07/30/19 18 Encounters Date Type Department Care Team Description 04/25/2025 Telephone [facility] Surgery [address] [place] [address] [address] [place] [place] [address] Vicenta Clement MD 04/04/2025 11:15 AM CATTLE BROKER Telemedicine [facility] Surgery [address] [place] [address] [address] [place] [address] Vicenta Clement MD S/P breast reconstruction (Primary Dx) 03/18/2025 11:30 AM CATTLE BROKER Office Visit [facility] Surgery [address] [place] [address] [address] [place] [address] S/P breast reconstruction (Primary Dx) 03/08/2025 9:40 AM CDT - 03/08/2025 12:05 PM CDT Surgery [facility] Operating Room [address] [place] [address] Vicenta Clement MD PLACEMENT BREAST IMPLANT 03/08/2025 9:10 AM CDT Anesthesia Event [facility] Operating Room [address] [place] [address] Filiberto Chanel MD Khodamoradi, Shahrdad, MD 03/08/2025 6:47 AM CDT - 03/09/2025 9:46 AM CDT Hospital Encounter [facility] [address] [address] [place] [address] Vicenta Clement MD S/P breast reconstruction, left (Primary Dx); Hx of breast reconstruction; Rupture of implant of left breast, initial encounter Discharge Disposition: Discharge to home or self care 02/04/2025 11:11 AM CDT - 02/04/2025 11:59 PM CDT Hospital Encounter [facility] and Radiology [address] [place], [place] [address] [address] Screening mammogram, encounter for Discharge Disposition: Discharge to home or self care 02/04/2025 10:00 AM CDT Office Visit [facility] Medicine Oncology [address] [place] [address] Tete Allan, ARNALDO Malignant neoplasm of [...] on file Legal Sex Female 4:40 AM CATTLE BROKER Gender Identity Female 05/16/2021 10:44 AM CATTLE BROKER Sexual Orientation Straight 12/02/2019 12 :24 PM CDT 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 Not on file [...] history exists Medical Devices Implanted Type Area Linseed Cake Trimmer Device Identifier Shelf Expiration Date Model / Serial / Lot [employer] Implant Hsc Gel Breast Smooth Round Moderate 365cc [id number] - [id number] Implanted:Qty: 1 on 03/08/2025 at [facility] Left: Breast [employer] 07/05/2029 [id number] / [id number] / Explanted Type Area Linseed Cake Trimmer Device Identifier Shelf Expiration Date Model / Serial / Lot Breast Implant Explanted:Qty: 1 on 03/08/2025 by Vicenta Clement MD at [facility] Left: Breast [employer] SCM-[id number] / / [id number] Procedures Procedure Name Priority Date/Time Associated Diagnosis Comments SURGICAL PATHOLOGY Routine 03/08/2025 9: 36 AM CDT Hx of breast reconstruction Rupture of implant of left breast, initial encounter DE AN PROCEDURE PLACEHOLDER Routine 03/08/2025 9:27 AM CDT DE AN ELECTIVE ENDOTRACHEAL AIRWAY Routine 03/08/2025 9:27 [...] PATHOLOGY [facility] - 03/11/2025 10:33 AM CDT [facility] results best viewed via link to PDF [facility] [place] [address] Note to Patients: This report may contain [...] Gender: F : 1950 (Age: 74) Address: [address] [place], [place] [address] Hospital #: [id number] Taken:03/08/2025 Received:03/08/2025 Reported: 03/11/2025 Patient Type: [facility] EP [facility] Client [facility] Service: PLS ([facility]) Location: Physician(s): Vicenta Clement M.D. Diagnosis: Breast, [...] interpretation for this case was performed at [facility], Department of Surgical Pathology, [address] [facility] [place], [place] [id number], [place] [address] CLIA # [id number] The performance characteristics of some immunohistochemical stains, fluorescence in-situ hybridization tests and immunophenotyping by flow cytometry cited in this report (if any) were determined by the Surgical Pathology and Flow Cytometry Departments at [facility] as part of an ongoing dairy quality assurance officer program and in compliance with federally mandated [...] Surgical Pathology and Flow Cytometry Departments of [facility]. It has not been cleared or approved by the U. S. Food and Drug Administration. IMAGES AND SCANNED DOCUMENTS, IF INCLUDED, ONLY VIEWABLE IN PDF VERSION OF REPORT us Vicenta Clement MD LAB PATHOLOGY ORDERABLES nal Result PATHOLOGY [facility] [phone] * DE AN ELECTIVE ENDOTRACHEAL AIRWAY, DE AN PROCEDURE PLACEHOLDER (03/08/2025 9:27 AM CDT) [...] cotinine (03/08/2025) Cotinine, POC Negative Lot Number [id number] QC Negative Control Acceptable QC Positive Control [...] Final Result from Last 3 Months Insurance [facility] MEDICARE [facility] MED[facility] Advance Directives For more information, please contact: [phone] Documents on File Type Date Recorded Patient Federal Law Clerk Expl anation ADVANCE DIRECTIVE 09/16/2017 5:37 AM ADVANCE DIRECTIVE 09/16/2017 Advance Di rective Checklist * Full Code (Latest Code Status on File) Date Activated Date Inactivated Comments 03/08/2025 11:31 AM 03/09/2025 2:03 PM Care Teams Spray Gunner Relationship Specialty Start Date End Date No, Physician PCP - General 02/23/25
--- OUTSIDE RECORDS SUMMARY | 2025-05-02 16:49 | XMS_ITS | Encounter Summary ---
Author Organization [facility] Address [address] [place] [address] Phone Care Team Providers Care Catering Server Name Role Phone Magdalena Ruiz MD Primary Care Provider [phone] Peggy Covington MD Unavailable Emilia Jimenes MD Unavailable Vicenta Clement MD Unavailable [phone] Mele Arriaga MD Unavailable Magdalena Ruiz MD Primary Care Provider [phone] No, Physician Primary Care Provider [phone] Encounter Details Date Type Department Care Team (Latest Contact Info) Description 10/15/2017 Orders Only [facility] Scanning, Provider Social History Tobacco Use Types Packs/Day Years Used Date Smoking Tobacco: Never Comments Unknown Sex and Gender Information Value Date Recorded Sex Assigned at Not on file Legal Sex Female 4:40 AM NEWSSTAND VENDOR Gender Identity Female 05/16/2021 10:44 AM NEWSSTAND VENDOR Sexual Orientation Straight 12/02/2019 12 :24 PM [...] on filedocumented in this encounter Care Teams Catering Server Relationship Specialty Start Date End Date Magdalena Ruiz MD PCP - General 07/31/17 07/23/22 Magdalena Ruiz MD [address] [place] [address] PCP - General Family Medicine 07/24/22 02/22/25 No, Physician PCP - General 02/23/25 Peggy Covington MD Medical Oncologist/Feeder Driver Medical Oncology 11/24/17 06/06/20 Emilia Jimenes MD Surgeon Breast Surgery 11/24/17 03/21/21 Vicenta Clement MD [address] [place] [address] Referring Physician Plastic Surgery 11/24/17 03/21/21 Mele Arriaga MD [address] [place] [address] Consulting Physician Medical Oncology 06/07/20 1 documented as of this encounter
--- OUTSIDE RECORDS SUMMARY | 2025-05-02 16:50 | XMS_ITS | Clinical Summary ---
Author Organization [facility] Address [address] [place] [address] Phone Care Team Providers Care Md Allergy Immunology Name Role Phone Magdalena Ruiz MD Primary Care Provider [phone] Allergies Active Allergy Reactions Criticality Noted Date [...] outpt follow up with primary neurologist in [facility] with workup to include treatable causes [...] medication. She is considering a move to [place] and is also concerned about cost and [...] medication. She is considering a move to [place] and is also concerned about cost and [...] Comments Blood Pressure 142/86 04/22/2022 1:46 PM SALES ASSISTANT ENTERTAINMENT AND MEDIA Pulse - - Temperature 36.6 C (97.9 F) 04/22/2022 1:46 PM SALES ASSISTANT ENTERTAINMENT AND MEDIA Respiratory Rate 18 04/22/2022 1:46 PM SALES ASSISTANT ENTERTAINMENT AND MEDIA Oxygen Saturation - - Inhaled Oxygen Concentration - - Weight 62.1 kg (137 lb) 04/22/2022 1:46 PM SALES ASSISTANT ENTERTAINMENT AND MEDIA Height 167.6 cm (5' 6) 04/22/2022 1:46 PM SALES ASSISTANT ENTERTAINMENT AND MEDIA Body Mass Index 22.11 04/22/2022 1:46 PM SALES ASSISTANT ENTERTAINMENT AND MEDIA Plan of Treatment Health Maintenance Due Date Last Done Comments Pneumococcal PPSV23/PCV13 65 + Years / Low and Medium Risk (2 of 3 - PCV20 or PCV21) 04/10/2019 04/10/2018 Influenza Vaccine (#1) 2025 02/26/2019 Insurance [employer] MEDICARE Care Teams Md Allergy Immunology Relationship Specialty Start Date End Date Magdalena Ruiz MD [address] [place] [address] PCP - General Internal Medicine 04/12/22
--- OUTSIDE RECORDS SUMMARY | 2025-05-02 16:50 | XMS_ITS | Encounter Summary ---
Author Organization [facility] Address [address] [place] [address] Phone Care Team Providers Care Regional Otr Company Driver Name Role Phone Magdalena Ruiz MD Primary Care Provider [phone] Emilia Jimenes MD Unavailable [phone] Vicenta Clement MD Unavailable [phone] Mele Arriaga MD Unavailable Magdalena Ruiz MD Primary Care Provider [phone] No, Physician Primary Care Provider [phone] Encounter Details Date Type Department Care Team [...] on file Legal Sex Female 4:40 AM ALUMINUM WELDER Gender Identity Female 05/16/2021 10:44 AM ALUMINUM WELDER Sexual Orientation Straight 12/02/2019 12 :24 PM CDT 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 Not on file [...] on filedocumented in this encounter Care Teams Regional Otr Company Driver Relationship Specialty Start Date End Date Magdalena Ruiz MD PCP - General 07/31/17 07/23/22 Magdalena Ruiz MD [address] [place] [address] PCP - General Family Medicine 07/24/22 02/22/25 No, Physician PCP - General 02/23/25 Emilia Jimenes MD Surgeon Breast Surgery 11/24/17 03/21/21 Vicenta Clement MD [address] [place] [address] Referring Physician Plastic Surgery 11/24/17 03/21/21 Mele Arriaga MD [address] [place] [address] Consulting Physician Medical Oncology 06/07/20 1 documented as of this encounter
--- OUTSIDE RECORDS SUMMARY | 2025-05-02 16:50 | XMS_ITS | Encounter Summary ---
Author Organization [facility] Healthcare Address [address] [place] [address] Care Team Providers Care Labor Trainer Name Role Phone Magdalena Ruiz MD Primary Care Provider Peggy Covington MD Unavailable Emilia Jimenes MD Unavailable Vicenta Clement MD Unavailable Mele Arriaga MD Unavailable Magdalena Ruiz MD Primary Care Provider No, Physician Primary Care Provider [phone] Encounter Details Date Type Department Care Team (Late st Contact Info) Description 08/11/2018 Telephone [facility] ([facility]) [facility] [place], [place] [id number] Tre Covington MD [address] [address] Social History Tobacco Use Types Packs/Day Years Used Date Smoking Tobacco: Never Smokeless Tobacco: Never Alcohol Use Standard Drinks/Week Comments No 0 (1 standard drink = 0.6 oz pur e alcohol) Comments Unknown Sex and Gender Information Value Date Recorded Sex Assigned at Not on file Legal Sex Female 4:40 AM HEAD OF TRANSPORT LOGISTICS Gender Identity Female 05/16/2021 10:44 AM HEAD OF TRANSPORT LOGISTICS Sexual Orientation Straight 12/02/2019 12 :24 PM CDT documented as of this encounter Plan of Treatment Not on file documented as of this encounter Visit Diagnoses Not on filedocumented in this encounter Care Teams Labor Trainer Relationship Specialty Start Date End Date Magdalena Ruiz MD PCP - General 07/31/17 07/23/22 Magdalena Ruiz MD [address] [place] [address] PCP - General Family Medicine 07/24/22 02/22/25 No, Physician PCP - General 02/23/25 Peggy Covington MD Medical Oncologist/Filing Clerk Medical Oncology 11/24/17 06/06/20 Emilia Jimenes MD Surgeon Breast Surgery 11/24/17 03/21/21 Vicenta Clement MD [address] [place] [address] Referring Physician Plastic Surgery 11/24/17 03/21/21 Mele Arriaga MD [address] [place] [address] Consulting Physician Medical Oncology 06/07/20 1 documented as of this encounter
== END 2025-05-02 15:12 | disposition home or self-care (01) ==
PROVIDERS: Visit Provider Internal Medicine Nephrology
DX: E23.2 Diabetes insipidus (principal)
CPT/HCPCS: 36415; 80069